=== PATIENT | female | born 1955 | race Caucasian/White ===

== ENCOUNTER → 2019-05-08 09:56 | Outpatient (CLI) | payer MEDICARE, OTHER, SELFPAY ==
[2019-05-08 11:12] LABS: Creatinine Urine Random 82.7 mg/dL
[2019-05-08 11:18] LABS: Microalbumi Creatinin Ratio Ur 7.2 ug/mg CR (<30); Microalbumin Urine Random < 0.6 mg/dL (0-1.6)
[2019-05-08 11:23] LABS: Add Manual Diff / Slide Review NO; Basophils Absolute Auto 100 /uL (0-100); Basophils Percent Auto 0.8 % (0-2); Eosinophils Absolute Auto 300 /uL (0-450); Eosinophils Percent Auto 2.8 % (2-4); Hematocrit 44.8 % (36-46); Hemoglobin 14.8 g/dL (12.0-16.0); Lymphocytes Absolute Auto 3200 /uL (1100-4500); Mean Corpuscular HGB Conc 33.1 % (30-36); Mean Corpuscular Hemoglobin 29.8 PG (26-34); Mean Corpuscular Volume 89.9 fL (80-100); Monocytes Absolute Auto 700 /uL (0-900); Neutrophils Absolute Auto 5100 /uL (1500-7000); Neutrophils Percent Auto 54.4 % (50-75); Platelet Count 355 X10^3/uL (150-400); Red Blood Cell Count 4.98 X10^6/uL (4.0-5.2); Red Cell Distribution Width 13.8 % (11.6-14.8); White Blood Cell Count 9.3 X10^3/uL (4.5-11.0)
[2019-05-08 11:28] LABS: Alanine Aminotransferase 33 IU/L (9-52); Albumin 4.6 g/dL (3.5-5.0); Albumin Globulin Ratio 1.4 (1.0-2.8); Alkaline Phosphatase 81 U/L (38-126); Aspartate Aminotransferase 38 IU/L (14-36); BUN Creatinine Ratio 31.3 (6-22); Bilirubin Total 0.7 mg/dL (0.2-1.3); Blood Urea Nitrogen 25 mg/dL (7-17); Calcium 9.6 mg/dL (8.4-10.2); Carbon Dioxide 29 mmol/L (22-32); Chloride 101 mmol/L (98-107); Cholesterol 263 mg/dL (140-199); Estimated Glomerular Filt Rate > 60.0 mL/min (>60); Globulin 3.4 g/dL (1.7-4.1); Glucose 90 mg/dL (80-110); HDL Cholesterol 48 mg/dL (40-60); HEMOLYSIS < 15 (0-50); LDL Cholesterol Calculated 173 mg/dL (<100); Potassium 4.2 mmol/L (3.4-5.1); Sodium 140 mmol/L (137-145); Triglycerides 208 mg/dL (35-150)
[2019-05-08 12:13] LABS: Free T4, Direct Thyroxine 0.96 ng/dL (0.78-2.19)
[2019-05-08 12:26] LABS: Thyroid Stimulating Hormone 4.29 uIU/mL (0.47-4.68)
== END ==
PROVIDERS: PCP Nurse Practitioner; Visit Provider Nurse Practitioner
DX: E66.9 Obesity, unspecified (principal); I10 Essential (primary) hypertension
CPT/HCPCS: 36415; 80053; 80061; 82043; 82570; 84439; 84443; 84481; 85025

== ENCOUNTER → 2019-06-08 14:28 | Outpatient (CLI) | payer MEDICARE, OTHER, SELFPAY ==
--- NOTE | 2019-06-08 14:30 | DI.MG.S_ITS ---
BILATERAL DIGITAL SCREENING MAMMOGRAM 3D/2D WITH CAD: 06/08/2019 CLINICAL: Routine screening. Comparison is made to exams dated: 03/23/2018 mammogram, 03/16/2015 mammogram, and 09/22/2013 mammogram - [facility]. The tissue of both breasts is heterogeneously dense. This may lower the sensitivity of mammography. Current study was also evaluated with a Computer Aided Detection (CAD) system. No significant masses, calcifications, or other findings are seen in either breast. There has been no significant interval change. IMPRESSION: NEGATIVE There is no mammographic evidence of malignancy. A 1 year screening mammogram is recommended. This exam was interpreted at Station ID: [id number]. NOTE: For mammograms, a report in lay terms will be sent to the patient. Approximately 15% of breast malignancies will not be visualized mammographically. In the management of a palpable breast mass, a negative mammogram must not discourage biopsy of a clinically suspicious lesion. Electronically Signed By: Pancho acuña/adelina:06/09/2019 07:21:08 letter sent: Normal Exam ACR BI-RADS Category 1: Negative 3341F
== END ==
PROVIDERS: PCP Nurse Practitioner; Visit Provider Nurse Practitioner
DX: Z12.31 Encounter for screening mammogram for malignant neoplasm of breast (principal); Z13.820 Encounter for screening for osteoporosis; Z78.0 Asymptomatic menopausal state; Z82.62 Family history of osteoporosis
CPT/HCPCS: 77063; 77067; 77080

== ENCOUNTER 2020-01-13 17:33 | Emergency (ER) | payer MEDICARE, OTHER, SELFPAY ==
[2020-01-13 18:28] VITALS: BP 169/83; PULSE 98; RESP 16; TEMP 36.9; O2SAT 96; BMI 35.5
--- NOTE | 2020-01-13 19:11 | ED.SKABFB ---
HPI - Skin/Abscess/Foreign Bdy General Chief complaint: Skin/Abscess/Foreign Body Stated complaint: bug bit right inner thigh, thinks cellulitis Time Seen by Provider: 01/13/20 17:35 Source: patient Mode of arrival: Ambulatory Limitations: no limitations History of Present Illness HPI narrative: 64F non smoker with history of HTN presents with a bug bite on her medial Right thigh. It has been gradually worsening for a few days and now is red and painful. She does not remember a bug biting her. She's had no systemic findings such as fever, chills, N/V. She denies any injury. She denies history of the same. MD complaint: insect bite/sting and abscess/boil Onset (ago): day(s) Tetanus up to date: yes Location: RLE Severity: moderate Quality: aching Pain Consistency: constant Relieving factors: none Exacerbating factors: movement Context: none Related Data Home Medications Medication Instructions Recorded Confirmed COQ10 300 mg PO BID 06/27/19 Triple Action [employer] Collagen See Rx Instructions .ROUTE .QDAY 06/27/19 calcium 1,200 mg PO .QDAY 06/27/19 fish oil 1,200 mg PO TID 06/27/19 olive leaf extract 20% oleuropein 750 mg PO .QDAY 06/27/19 red rice yeast 2,400 mg PO BID 06/27/19 vitamin D3 800 unit PO .QDAY 06/27/19 Previous Rx's Medication Instructions Recorded triamterene 75 1 tab PO QAM #90 tab 05/08/19 mg-hydrochlorothiazide 50 mg tablet omeprazole 20 mg capsule,delayed 20 mg PO DAILY #90 cap 05/22/19 release varicella-zoster [id number]-AS01B (PF) 50 0.5 ml IM ONCE #1 each 05/22/19 mcg/0.5 mL IM susp, kit gabapentin 100 mg capsule 100 mg PO BEDTIME #90 cap 06/15/19 losartan 25 mg tablet 12.5 mg PO DAILY #45 tab 01/01/20 cephalexin [Keflex] 500 mg PO QID 7 Days #28 cap 01/13/20 Allergies Allergy/AdvReac Type Severity Reaction Status Date / Time lisinopril AdvReac Intermediate Cough Verified 05/22/19 10:10 Review of Systems Constitutional Constitutional: Denies chills, Denies fatigue, Denies fever(s), Denies frequent falls, Denies lethargy and Denies weakness Eyes Eyes: Denies change in vision, Denies eye discharge, Denies irritation and Denies loss of vision ENT Ears, Nose, Mouth, and Throat: Denies change in voice, Denies dizziness, Denies neck pain, Denies sore throat and Denies throat swelling Cardiovascular Cardiovascular: Denies chest pain, Denies irregular heart rhythm, Denies lightheadedness, Denies palpitations, Denies dyspnea, Denies dyspnea on exertion and Denies orthopnea Respiratory Respiratory: Denies cough, Denies dyspnea, Denies dyspnea on exertion and Denies wheezing Gastrointestinal Gastrointestinal: Denies abdominal pain, Denies change in bowel habits, Denies diarrhea, Denies nausea and Denies vomiting Musculoskeletal Musculoskeletal: Denies neck pain and Denies numbness Integumentary/Breasts Skin/Breast: Denies pruritus, Reports erythema, Denies rash, Reports skin pain, Reports skin swelling and Denies wounds Neurologic Neurologic: Denies behavioral changes, Denies confusion, Denies dizziness, Denies frequent falls, Denies loss of vision, Denies numbness and Denies weakness Psychiatric Psychiatric: Denies anxiety, Denies behavioral changes, Denies confusion, Denies depression, Denies homicidal ideation and Denies suicidal ideation Endocrine Endocrine: Denies fatigue, Denies flushing and Denies palpitations Hematologic/Lymphatic Hematologic/Lymphatic: Denies easy bruising Allergic/Immunologic Allergic/Immunologic: Denies urticaria, Denies throat swelling and Denies wheezing Patient History Medical History Chicken pox (Resolved) Fibula fracture (Resolved) Measles (Inactive) Mumps (Resolved) Painful menstrual periods (Resolved) Surgical History Anesthesia (Resolved) History of tonsillectomy and adenoidectomy (Resolved) Status post arthroscopy of hip (Resolved ~2011) Family History Father History of heart disease Kidney failure Mother History of heart disease Kidney failure Social History Smoking Status: Never smoker Smoking Status: Never smoker alcohol intake frequency: 0-2 drinks per day Substance Use Type: does not use Exam Narrative Exam Narrative: GEN: AOx3 and in mild distress EYES: Pupils are equal, round, and reactive to light and accommodation. Extraoccular muscles are intact bilaterally. There is no subconjunctival hemorrhage or exudate. CHEST: Lungs are clear to auscultation bilaterally and free of wheezes, rales, or rhonchi. Heart rate is regular rhythm, there are no murmurs, clicks, rubs, or gallops. There is no chest wall tenderness. ABD: Abdomen is soft and nontender. There is no guarding or rebound. Bowel sounds are normal in all 4 quadrants. There is no mass or organomegaly. EXT: Full painless ROM of all extremities with no loss of sensation or strength. SKIN: 3x3cm area of tenderness, erythema, warmth on medial thigh. Very minimal induration and no fluctuance or lympangitis Initial Vital Signs Initial Vital Signs: Vital Signs Temperature 98.5 F 01/13/20 18:28 Pulse Rate 98 H 01/13/20 18:28 Respiratory Rate 16 01/13/20 18:28 Blood Pressure 169/83 H 01/13/20 18:28 Pulse Oximetry 96 01/13/20 18:28 Course Orders Ordered: Discontinued Medications Cefazolin Sodium (Keflex 250 Mg Prepack) 1 bottle [facility] ONE Stop: 01/13/20 19:18 Last Admin: 01/13/20 19:28 Dose: 1 bottle Documented by: DAVIDE Vital Signs Vital signs: Vital Signs - 8 hr 01/13/20 18:28 Temperature 98.5 F Pulse Rate 98 H Respiratory Rate 16 Blood Pressure 169/83 H Pulse Oximetry 96 MDM - Skin/Abscess/Foreign Bdy MDM Narrative Medical decision making narrative: Redness on thigh with pain and warmth and no witnessed bug bite. Most likely very early abscess with cellulitis. Not large enough to drain. Return precautions given. Questions answered to her apparent satisfaction. Discharge Plan Departure Patient Disposition: Home Clinical Impression: Cellulitis of leg, right Discharge Date/Time: 01/13/20 19:32 Instructions: DI for Cellulitis -- Adult Activity Restrictions/Additional Instructions: *You have been diagnosed with [cellulitis right thigh] *What to do: *Take medications as directed: Prescription has been sent to [facility] in [place] *Follow up with your primary care provider in 2-3 days, call for an appointment. Let them know you were seen in the Emergency Department and that we ask that you be seen in follow up *Return to ER if you should have any new, worsening or concerning symptoms Prescriptions: New cephalexin [Keflex] 500 mg capsule 500 mg PO QID 7 Days Qty: 28 RF: 0 No Action gabapentin 100 mg capsule 100 mg PO BEDTIME Qty: 90 RF: 3 COQ10 300 mg PO BID RF: 0 red rice yeast 2,400 mg PO BID RF: 0 calcium 1,200 mg PO .QDAY RF: 0 fish oil 1,200 mg PO TID RF: 0 olive leaf extract 20% oleuropein 750 mg PO .QDAY RF: 0 Triple Action [employer] Collagen See Rx Instructions .ROUTE .QDAY RF: 0 vitamin D3 800 unit PO .QDAY RF: 0 losartan 25 mg tablet 12.5 mg PO DAILY Qty: 45 RF: 3 triamterene-hydrochlorothiazid [Maxzide] 75-50 mg tablet 1 tab PO QAM Qty: 90 RF: 3 omeprazole 20 mg capsule,delayed release(DR/EC) 20 mg PO DAILY Qty: 90 RF: 3 Shingrix (PF) 50 mcg/0.5 mL suspension for reconstitution 0.5 ml IM ONCE Qty: 1 RF: 0 Referrals: Graciela Parkinson ARNP [Primary Care Provider] -
--- NOTE | 2020-01-13 19:21 | PC.NURSE ---
Pt states over past 2 days has had increasing redness/tenderness to L upper medial thigh. Pt denies hx of MRSA, states believes was from a bug bite. 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 Pt denies fever/chills. Pt in NAD.
[2020-01-13] MEDS: cephALEXin 250 MG PREPACK 1 BOTTLE MISC (19:28)
== END 2020-01-13 19:32 | disposition home or self-care (01) ==
PROVIDERS: Emergency Provider Emergency Medicine; PCP Nurse Practitioner
DX: L03.115 Cellulitis of right lower limb (principal)
CPT/HCPCS: 99281; 99283

== ENCOUNTER → 2020-08-27 09:37 | Outpatient (CLI) | payer MEDICARE, OTHER, SELFPAY ==
[2020-08-27 10:41] LABS: Alanine Aminotransferase 42 IU/L (<35); Albumin 4.3 g/dL (3.5-5.0); Albumin Globulin Ratio 1.3 (1.0-2.8); Alkaline Phosphatase 77 U/L (38-126); Aspartate Aminotransferase 41 IU/L (14-36); BUN Creatinine Ratio 23.9 (6-22); Bilirubin Total 0.5 mg/dL (0.2-1.3); Blood Urea Nitrogen 26 mg/dL (7-17); Calcium 9.7 mg/dL (8.4-10.2); Carbon Dioxide 31 mmol/L (22-32); Chloride 99 mmol/L (98-107); Cholesterol 221 mg/dL (140-199); Estimated Glomerular Filt Rate 50.1 mL/min (>60); Globulin 3.3 g/dL (1.7-4.1); Glucose 99 mg/dL (80-110); HDL Cholesterol 49 mg/dL (40-60); HEMOLYSIS < 15 (0-50); LDL Cholesterol Calculated 134 mg/dL (<100); Potassium 3.5 mmol/L (3.4-5.1); Sodium 137 mmol/L (137-145); Total Protein 7.6 g/dL (6.3-8.2); Triglycerides 189 mg/dL (35-150)
[2020-08-27 10:55] LABS: Free T3, Triiodothyronine Free 3.67 pg/mL (2.77-5.27); Free T4, Direct Thyroxine 1.15 ng/dL (0.78-2.19)
[2020-08-27 11:07] LABS: Creatinine Urine Random 112.6 mg/dL
[2020-08-27 11:09] LABS: Thyroid Stimulating Hormone 5.35 uIU/mL (0.47-4.68)
[2020-08-27 11:10] LABS: Microalbumi Creatinin Ratio Ur 7.9 ug/mg CR (<30); Microalbumin Urine Random 0.9 mg/dL (0-1.6)
== END ==
PROVIDERS: PCP Nurse Practitioner; Referring Provider Nurse Practitioner; Visit Provider Nurse Practitioner
DX: E66.9 Obesity, unspecified (principal); E78.5 Hyperlipidemia, unspecified; I10 Essential (primary) hypertension; Z79.899 Other long term (current) drug therapy
CPT/HCPCS: 36415; 80053; 80061; 82043; 82570; 84439; 84443; 84481

== ENCOUNTER → 2021-01-03 12:03 | Outpatient (CLI) | payer MEDICARE, OTHER, SELFPAY ==
[2021-01-03 14:04] LABS: Alanine Aminotransferase 20 IU/L (<35); Albumin 4.1 g/dL (3.5-5.0); Albumin Globulin Ratio 1.4 (1.0-2.8); Alkaline Phosphatase 75 U/L (38-126); Aspartate Aminotransferase 33 IU/L (14-36); BUN Creatinine Ratio 21.8 (6-22); Bilirubin Total 0.4 mg/dL (0.2-1.3); Blood Urea Nitrogen 22 mg/dL (7-17); Calcium 10.2 mg/dL (8.4-10.2); Carbon Dioxide 28 mmol/L (22-32); Chloride 98 mmol/L (98-107); Cholesterol 199 mg/dL (140-199); Estimated Glomerular Filt Rate 54.7 mL/min (>60); Glucose 87 mg/dL (80-110); HDL Cholesterol 49 mg/dL (40-60); HEMOLYSIS < 15 (0-50); LDL Cholesterol Calculated 120 mg/dL (<100); Potassium 3.9 mmol/L (3.4-5.1); Sodium 135 mmol/L (137-145); Total Protein 7.1 g/dL (6.3-8.2); Triglycerides 150 mg/dL (35-150)
[2021-01-03 14:19] LABS: Free T3, Triiodothyronine Free 3.38 pg/mL (2.77-5.27); Free T4, Direct Thyroxine 1.24 ng/dL (0.78-2.19)
[2021-01-03 14:33] LABS: Thyroid Stimulating Hormone 3.01 uIU/mL (0.47-4.68)
[2021-01-04 06:38] LABS: HBsAg Screen Negative (Negative); Hepatitis A Antibody IgM Negative (Negative); Hepatitis B Core Antibody IgM Negative (Negative); Hepatitis C Antibody <0.1 s/co ratio (0.0-0.9)
== END ==
PROVIDERS: PCP Nurse Practitioner; Referring Provider Nurse Practitioner; Visit Provider Nurse Practitioner
DX: E78.5 Hyperlipidemia, unspecified (principal); R94.4 Abnormal results of kidney function studies; I10 Essential (primary) hypertension; R79.89 Other specified abnormal findings of blood chemistry
CPT/HCPCS: 36415; 80053; 80061; 80074; 84439; 84443; 84481

== ENCOUNTER → 2021-05-23 09:11 | Outpatient (CLI) | payer MEDICARE, OTHER, SELFPAY ==
[2021-05-23 10:00] LABS: Alanine Aminotransferase 18 IU/L (<35); Albumin 3.9 g/dL (3.5-5.0); Albumin Globulin Ratio 1.3 (1.0-2.8); Alkaline Phosphatase 56 U/L (38-126); Aspartate Aminotransferase 24 IU/L (14-36); BUN Creatinine Ratio 19.8 (6-22); Bilirubin Total 0.5 mg/dL (0.2-1.3); Blood Urea Nitrogen 19 mg/dL (7-17); Calcium 9.3 mg/dL (8.4-10.2); Carbon Dioxide 30 mmol/L (22-32); Chloride 102 mmol/L (98-107); Cholesterol 176 mg/dL (140-199); Globulin 2.9 g/dL (1.7-4.1); Glucose 94 mg/dL (80-110); HDL Cholesterol 43 mg/dL (40-60); Magnesium 1.9 mg/dL (1.6-2.3); Potassium 3.8 mmol/L (3.4-5.1); Sodium 139 mmol/L (137-145); Total Protein 6.8 g/dL (6.3-8.2); Triglycerides 161 mg/dL (35-150)
[2021-05-23 10:01] LABS: HEMOLYSIS < 15 (0-50); LDL Cholesterol Calculated 101 mg/dL (<100)
[2021-05-23 12:12] LABS: Creatinine Urine Random 196.9 mg/dL
[2021-05-23 12:20] LABS: Microalbumi Creatinin Ratio Ur 17.2 ug/mg CR (<30); Microalbumin Urine Random 3.4 mg/dL (0-1.6)
== END ==
PROVIDERS: PCP Nurse Practitioner; Referring Provider Nurse Practitioner; Visit Provider Nurse Practitioner
DX: E78.2 Mixed hyperlipidemia (principal); I10 Essential (primary) hypertension; Z79.899 Other long term (current) drug therapy
CPT/HCPCS: 36415; 80053; 80061; 82043; 82570; 83735

== ENCOUNTER → 2021-06-17 16:40 | Outpatient (CLI) | payer MEDICARE, OTHER, SELFPAY ==
--- NOTE | 2021-06-17 16:44 | DI.MG.S_ITS ---
BILATERAL DIGITAL SCREENING MAMMOGRAM 3D/2D WITH CAD: 06/17/2021 CLINICAL: Routine screening. Comparison is made to exams dated: 06/08/2019 mammogram - [facility], 03/23/2018 mammogram, and 03/16/2015 mammogram - [facility]. The tissue of both breasts is heterogeneously dense. This may lower the sensitivity of mammography. Current study was also evaluated with a Computer Aided Detection (CAD) system. No significant masses, calcifications, or other findings are seen in either breast. There has been no significant interval change. IMPRESSION: NEGATIVE There is no mammographic evidence of malignancy. A 1 year screening mammogram is recommended. This exam was interpreted at Station ID: [id number]. NOTE: For mammograms, a report in lay terms will be sent to the patient. Approximately 15% of breast malignancies will not be visualized mammographically. In the management of a palpable breast mass, a negative mammogram must not discourage biopsy of a clinically suspicious lesion. Electronically Signed By: Ric Murray M.D., jr/adelina:06/18/2021 10:01:45 letter sent: Normal Exam ACR BI-RADS Category 1: Negative 3341F
== END ==
PROVIDERS: PCP Nurse Practitioner; Referring Provider Nurse Practitioner; Visit Provider Nurse Practitioner
DX: Z12.31 Encounter for screening mammogram for malignant neoplasm of breast (principal)
CPT/HCPCS: 77063; 77067

== ENCOUNTER → 2021-11-20 09:00 | Outpatient (CLI) | payer MEDICARE, OTHER, SELFPAY ==
[2021-11-20 11:11] LABS: Alanine Aminotransferase 14 IU/L (<35); Albumin 4.2 g/dL (3.5-5.0); Albumin Globulin Ratio 1.3 (1.0-2.8); Alkaline Phosphatase 72 U/L (38-126); Aspartate Aminotransferase 24 IU/L (14-36); BUN Creatinine Ratio 22.1 (6-22); Bilirubin Total 0.5 mg/dL (0.2-1.3); Blood Urea Nitrogen 21 mg/dL (7-17); Calcium 9.2 mg/dL (8.4-10.2); Carbon Dioxide 25 mmol/L (22-32); Chloride 101 mmol/L (98-107); Cholesterol 197 mg/dL (140-199); Estimated Glomerular Filt Rate > 60 mL/min (>60); Globulin 3.2 g/dL (1.7-4.1); Glucose 94 mg/dL (80-110); HDL Cholesterol 50 mg/dL (40-60); HEMOLYSIS < 15 (0-50); LDL Cholesterol Calculated 120 mg/dL (<100); Potassium 3.9 mmol/L (3.4-5.1); Sodium 139 mmol/L (137-145); Total Protein 7.4 g/dL (6.3-8.2); Triglycerides 133 mg/dL (35-150)
[2021-11-20 11:25] LABS: Free T3, Triiodothyronine Free 3.44 pg/mL (2.77-5.27); Free T4, Direct Thyroxine 1.24 ng/dL (0.78-2.19)
[2021-11-20 11:39] LABS: Thyroid Stimulating Hormone 3.08 uIU/mL (0.47-4.68)
== END ==
PROVIDERS: PCP Nurse Practitioner; Referring Provider Nurse Practitioner; Visit Provider Nurse Practitioner
DX: E78.2 Mixed hyperlipidemia (principal); I10 Essential (primary) hypertension; Z79.899 Other long term (current) drug therapy
CPT/HCPCS: 36415; 80053; 80061; 84439; 84443; 84481

== ENCOUNTER → 2022-04-10 08:55 | Outpatient (CLI) | payer MEDICARE, OTHER, SELFPAY ==
[2022-04-10 10:21] LABS: Alanine Aminotransferase 16 IU/L (<35); Albumin 4.1 g/dL (3.5-5.0); Albumin Globulin Ratio 1.2 (1.0-2.8); Alkaline Phosphatase 64 U/L (38-126); Aspartate Aminotransferase 28 IU/L (14-36); BUN Creatinine Ratio 21.3 (6-22); Bilirubin Total 0.5 mg/dL (0.2-1.3); Blood Urea Nitrogen 19 mg/dL (7-17); Calcium 8.7 mg/dL (8.4-10.2); Carbon Dioxide 27 mmol/L (22-32); Chloride 100 mmol/L (98-107); Cholesterol 167 mg/dL (140-199); Estimated Glomerular Filt Rate > 60 mL/min (>60); Globulin 3.4 g/dL (1.7-4.1); Glucose 94 mg/dL (80-110); HDL Cholesterol 44 mg/dL (40-60); HEMOLYSIS < 15 (0-50); LDL Cholesterol Calculated 105 mg/dL (<100); Potassium 3.5 mmol/L (3.4-5.1); Sodium 139 mmol/L (137-145); Total Protein 7.5 g/dL (6.3-8.2); Triglycerides 91 mg/dL (35-150)
== END ==
PROVIDERS: PCP Nurse Practitioner; Referring Provider Nurse Practitioner; Visit Provider Nurse Practitioner
DX: E78.2 Mixed hyperlipidemia (principal); Z79.899 Other long term (current) drug therapy
CPT/HCPCS: 36415; 80053; 80061

== ENCOUNTER → 2022-04-10 14:32 | Outpatient (CLI) | payer MEDICARE, OTHER, SELFPAY | PROVIDERS: PCP Nurse Practitioner; Referring Provider Nurse Practitioner; Visit Provider Nurse Practitioner | DX: N95.8 Other specified menopausal and perimenopausal disorders (principal); E78.2 Mixed hyperlipidemia; Z79.899 Other long term (current) drug therapy | CPT/HCPCS: 36415; 77080; 80053; 80061 ==

== ENCOUNTER 2022-10-30 10:17 | Emergency (ER) | payer MEDICARE, OTHER, SELFPAY ==
[2022-10-30] VITALS (33 sets, daily range): BP systolic 118–196; BP diastolic 66–95; PULSE 74–120; RESP 13–34; TEMP 36.3–37.2; O2SAT 96–99; BMI 36.6
--- NOTE | 2022-10-30 10:39 | DI.RAD.S_ITS ---
PROCEDURE: XR CHEST 1V INDICATIONS: Shortness of breath TECHNIQUE: One view of the chest was acquired. COMPARISON: None. FINDINGS: Surgical changes and devices: None. Lungs and pleura: Lungs are clear. No pleural effusions or pneumothorax. Mediastinum: Mediastinal contours appear normal. Heart size is normal. Bones and chest wall: No suspicious bony lesions. Overlying soft tissues appear unremarkable. IMPRESSION: No acute cardiopulmonary process. Dictated by: Noah Ochoa M.D. on 10/30/2022 at 11:09 Approved by: Noah Ochoa M.D. on 10/30/2022 at 11:09
[2022-10-30 10:56] LABS: Alanine Aminotransferase 20 IU/L (<35); Albumin 4.3 g/dL (3.5-5.0); Albumin Globulin Ratio 1.2 (1.0-2.8); Alkaline Phosphatase 76 U/L (38-126); Aspartate Aminotransferase 26 IU/L (14-36); BUN Creatinine Ratio 23.5 (6-22); Bilirubin Total 0.5 mg/dL (0.2-1.3); Blood Urea Nitrogen 24 mg/dL (7-17); Calcium 9.4 mg/dL (8.4-10.2); Carbon Dioxide 25 mmol/L (22-32); Chloride 97 mmol/L (98-107); Estimated Glomerular Filt Rate 60 mL/min (>60); Globulin 3.7 g/dL (1.7-4.1); Glucose 123 mg/dL (80-110); HEMOLYSIS < 15 (0-50); Lactate (Lactic Acid) 1.8 mmol/L (0.7-2.1); Potassium 3.1 mmol/L (3.4-5.1); Sodium 135 mmol/L (137-145)
[2022-10-30 10:59] LABS: Add Manual Diff / Slide Review NO; Basophils Absolute Auto 200 /uL (0-100); Eosinophils Absolute Auto 300 /uL (0-450); Eosinophils Percent Auto 1.7 % (2-4); Hematocrit 24.8 % (36-46); Hemoglobin 7.2 g/dL (12.0-16.0); Lymphocytes Absolute Auto 5000 /uL (1100-4500); Lymphocytes Percent Auto 34.3 % (25-40); Mean Corpuscular Hemoglobin 17.9 PG (26-34); Mean Corpuscular Volume 61.5 fL (80-100); Monocytes Absolute Auto 1300 /uL (0-900); Monocytes Percent Auto 8.9 % (3-14); Neutrophils Absolute Auto 7900 /uL (1500-7000); Neutrophils Percent Auto 54.1 % (50-75); Platelet Count 572 X10^3/uL (150-400); Red Blood Cell Count 4.04 X10^6/uL (4.0-5.2); Red Cell Distribution Width 19.4 % (11.6-14.8); White Blood Cell Count 14.7 X10^3/uL (4.5-11.0)
[2022-10-30 11:02] LABS: INR 1.2 (0.9-1.3); Prothrombin Time 13.3 SECONDS (10.1-12.7)
[2022-10-30 11:07] LABS: NT-proBNP (BNP-Adult 18+) 61 pg/mL (<125); Troponin I < 0.012 ng/mL (0.01-0.034)
--- NOTE | 2022-10-30 11:19 | ED_ITS ---
HPI - SOB/Dyspnea General Chief Complaint: Shortness of Breath/Dyspnea Stated Complaint: sent by [facility]/ SOB/high BP Time Seen by Provider: 10/30/22 10:46 Source: patient Mode of arrival: Family Vehicle Limitations: no limitations History of Present Illness HPI Narrative: This is a 67-year-old female with history of hypertension, dyslipidemia, GERD complaint of shortness of breath with exertion that has been going on for a couple months. Patient states when she is seated she is fine she denies any orthopnea. She states she is been less active she thought she would gained some weight in the last week she is had a little bit of cough which has been nonproductive. She denies fevers but has felt warm. No cold or congestive symptoms. Patient denies any chest pain or pressure. No lightheadedness or syncope. She states that she went shopping and felt quite fatigued yesterday. Patient has noted on her eye watch that her heart rate has been 90s and occasionally 0s fairly consistently. She denies any new swelling in her extremities. No nausea no vomiting, no black or bloody stools, no diarrhea constipation. She is scheduled for a flight to [place] tomorrow. She notes she is on Maxzide, niacin and stopped her omeprazole 2 months ago. She states she weaned herself off because she would read about some of the long-term complications. She is had remote history of hip arthroscopy and tonsillectomy. No known drug allergies. No tobacco, occasional alcohol but none for the past 1-2 months after she stopped her omeprazole. No illicit. Graciela parkinson as her primary care. Related Data Home Medications Medication Instructions Recorded Confirmed [facility] Collagen See Rx Instructions .Route .QDAY 06/27/19 11/27/21 calcium 1,200 mg PO .QDAY 06/27/19 11/27/21 vitamin D3 800 unit PO .QDAY 06/27/19 11/27/21 Previous Rx's Medication Instructions Recorded hydrocodone 5 mg-acetaminophen 325 1 tab PO BID PRN pain #10 tabs 11/27/21 mg tablet losartan 25 mg tablet See Rx Instructions .Route 11/27/21 .COMPLEX #45 tabs niacin 250 mg capsule,extended 500 mg PO BEDTIME #180 caps 11/27/21 release triamterene 75 See Rx Instructions .Route 12/12/22 mg-hydrochlorothiazide 50 mg tablet .COMPLEX #90 tabs famotidine 40 mg tablet (Pepcid) 40 mg PO BID #30 tabs 10/30/22 furosemide 40 mg tablet (Lasix) 40 mg PO DAILY #2 tabs 10/30/22 Allergies Allergy/AdvReac Type Severity Reaction Status Date / Time lisinopril AdvReac Intermediate Cough Verified 10/30/22 10:48 Review of Systems Review of Systems ROS Unobtainable: All systems reviewed & are unremarkable except as noted in HPI and below Patient History Medical History Acne Chicken pox Colon polyps Fibula fracture Frequent UTI GERD (gastroesophageal reflux disease) Hay fever Hip problem Hyperlipidemia Measles Mumps Painful menstrual periods Right hip pain Statin declined Surgical History Anesthesia History of tonsillectomy and adenoidectomy Status post arthroscopy of hip (~2011) Family History Father History of heart disease Kidney failure Mother History of heart disease Kidney failure Social History Smoking Status: Never smoker Smoking Status: Never smoker alcohol intake frequency: 0-2 drinks per day Substance Use Type: does not use Exam Narrative Exam Narrative: GENERAL: Alert and oriented x three, well-appearing female in mild distress. HEENT: Head normocephalic, atraumatic, EOMI, pupils reactive, face symmetric, moist mucous membranes NECK: Supple, full range of motion CARDIOVASCULAR: Regular rate and rhythm without murmurs, rubs or gallops. Patient heart rate is in the 90s she is been seated for about 30 minutes after arrival. RESPIRATORY: Breath sounds equal bilaterally, no wheezes rales or rhonchi. No tachypnea or accessory muscle use. Speaks in full sentences. ABDOMEN: Soft, nontender. Normoactive bowel sounds all 4 quadrants. No guarding or rebound, rigidity, no mass, rectal exam shows no mass or changes. Stool occult is negative but very small sample. : No CVA tenderness EXTREMITIES: Normal range of motion, no clubbing or edema. Neurovascularly intact NEUROLOGICAL: Cranial nerves II through XII grossly intact. Moving all extremities SKIN: Warm, dry, no petechiae, no rashes or lesions. Initial Vital Signs Initial Vital Signs: Vital Signs Temperature 98.5 F 10/30/22 10:25 Pulse Rate 120 H 10/30/22 10:25 Respiratory Rate 24 10/30/22 10:25 Blood Pressure 166/95 H 10/30/22 10:25 Pulse Oximetry 97 10/30/22 10:25 Oxygen Delivery Method Room Air 10/30/22 10:25 Course Orders Ordered: Discontinued Medications Pantoprazole Sodium (Pantoprazole 40 Mg Vial) 80 mg IV NOW ONE Stop: 10/30/22 12:41 Last Admin: 10/30/22 13:34 Dose: 80 mg Documented By: NIURKA Vital Signs Vital signs: Vital Signs - 8 hr 10/30/22 11:56 10/30/22 11:30 10/30/22 11:30 Temperature Pulse Rate 94 H Pulse Rate [Orthostatic Lying] 91 H Pulse Rate [Orthostatic Sitting] 93 H Pulse Rate [Orthostatic Standing] 97 H Respiratory Rate 23 Blood Pressure 169/82 H Blood Pressure [Orthostatic Lying] 166/79 H Blood Pressure [Orthostatic Sitting] 172/79 H Blood Pressure [Orthostatic Standing] 151/73 H Pulse Oximetry 98 Oxygen Delivery Method 10/30/22 11:48 10/30/22 11:48 10/30/22 11:50 Temperature Pulse Rate 90 95 H Pulse Rate [Orthostatic Lying] Pulse Rate [Orthostatic Sitting] Pulse Rate [Orthostatic Standing] Respiratory Rate 34 H 26 H Blood Pressure 166/79 H Blood Pressure [Orthostatic Lying] Blood Pressure [Orthostatic Sitting] Blood Pressure [Orthostatic Standing] Pulse Oximetry 96 96 Oxygen Delivery Method 10/30/22 11:50 10/30/22 11:51 10/30/22 11:51 Temperature Pulse Rate 99 H Pulse Rate [Orthostatic Lying] Pulse Rate [Orthostatic Sitting] Pulse Rate [Orthostatic Standing] Respiratory Rate 20 Blood Pressure 172/79 H 151/73 H Blood Pressure [Orthostatic Lying] Blood Pressure [Orthostatic Sitting] Blood Pressure [Orthostatic Standing] Pulse Oximetry 98 Oxygen Delivery Method 10/30/22 12:00 10/30/22 12:00 10/30/22 14:23 Temperature 98.6 F Pulse Rate 89 83 Pulse Rate [Orthostatic Lying] Pulse Rate [Orthostatic Sitting] Pulse Rate [Orthostatic Standing] Respiratory Rate 25 H 18 Blood Pressure 166/80 H 183/85 H Blood Pressure [Orthostatic Lying] Blood Pressure [Orthostatic Sitting] Blood Pressure [Orthostatic Standing] Pulse Oximetry 99 Oxygen Delivery Method Room Air 10/30/22 12:30 10/30/22 12:30 10/30/22 13:00 Temperature Pulse Rate 99 H Pulse Rate [Orthostatic Lying] Pulse Rate [Orthostatic Sitting] Pulse Rate [Orthostatic Standing] Respiratory Rate 24 Blood Pressure 172/78 H 188/80 H Blood Pressure [Orthostatic Lying] Blood Pressure [Orthostatic Sitting] Blood Pressure [Orthostatic Standing] Pulse Oximetry 99 Oxygen Delivery Method 10/30/22 13:00 10/30/22 13:30 10/30/22 13:30 Temperature Pulse Rate 89 86 Pulse Rate [Orthostatic Lying] Pulse Rate [Orthostatic Sitting] Pulse Rate [Orthostatic Standing] Respiratory Rate 20 25 H Blood Pressure 194/79 H Blood Pressure [Orthostatic Lying] Blood Pressure [Orthostatic Sitting] Blood Pressure [Orthostatic Standing] Pulse Oximetry 96 98 Oxygen Delivery Method 10/30/22 14:00 10/30/22 14:01 10/30/22 14:01 Temperature Pulse Rate 87 85 Pulse Rate [Orthostatic Lying] Pulse Rate [Orthostatic Sitting] Pulse Rate [Orthostatic Standing] Respiratory Rate 22 19 Blood Pressure 183/82 H Blood Pressure [Orthostatic Lying] Blood Pressure [Orthostatic Sitting] Blood Pressure [Orthostatic Standing] Pulse Oximetry 99 98 Oxygen Delivery Method 10/30/22 14:24 10/30/22 14:24 10/30/22 14:30 Temperature Pulse Rate 83 Pulse Rate [Orthostatic Lying] Pulse Rate [Orthostatic Sitting] Pulse Rate [Orthostatic Standing] Respiratory Rate 24 Blood Pressure 183/85 H 161/78 H Blood Pressure [Orthostatic Lying] Blood Pressure [Orthostatic Sitting] Blood Pressure [Orthostatic Standing] Pulse Oximetry Oxygen Delivery Method 10/30/22 14:30 10/30/22 14:39 10/30/22 14:44 Temperature 98.9 F Pulse Rate 81 83 83 Pulse Rate [Orthostatic Lying] Pulse Rate [Orthostatic Sitting] Pulse Rate [Orthostatic Standing] Respiratory Rate 23 20 22 Blood Pressure 176/79 H Blood Pressure [Orthostatic Lying] Blood Pressure [Orthostatic Sitting] Blood Pressure [Orthostatic Standing] Pulse Oximetry 98 Oxygen Delivery Method Room Air 10/30/22 14:44 10/30/22 15:00 10/30/22 15:00 Temperature Pulse Rate 82 Pulse Rate [Orthostatic Lying] Pulse Rate [Orthostatic Sitting] Pulse Rate [Orthostatic Standing] Respiratory Rate 21 Blood Pressure 176/79 H 160/77 H Blood Pressure [Orthostatic Lying] Blood Pressure [Orthostatic Sitting] Blood Pressure [Orthostatic Standing] Pulse Oximetry Oxygen Delivery Method 10/30/22 15:30 10/30/22 15:30 10/30/22 16:07 Temperature 98.7 F Pulse Rate 80 82 Pulse Rate [Orthostatic Lying] Pulse Rate [Orthostatic Sitting] Pulse Rate [Orthostatic Standing] Respiratory Rate 15 16 Blood Pressure 181/81 H 175/79 H Blood Pressure [Orthostatic Lying] Blood Pressure [Orthostatic Sitting] Blood Pressure [Orthostatic Standing] Pulse Oximetry 98 Oxygen Delivery Method Room Air 10/30/22 16:48 10/30/22 16:00 10/30/22 16:00 Temperature 98.4 F Pulse Rate 81 83 Pulse Rate [Orthostatic Lying] Pulse Rate [Orthostatic Sitting] Pulse Rate [Orthostatic Standing] Respiratory Rate 24 23 Blood Pressure 181/83 H 196/86 H Blood Pressure [Orthostatic Lying] Blood Pressure [Orthostatic Sitting] Blood Pressure [Orthostatic Standing] Pulse Oximetry 99 Oxygen Delivery Method 10/30/22 16:04 10/30/22 16:04 10/30/22 16:30 Temperature Pulse Rate 81 Pulse Rate [Orthostatic Lying] Pulse Rate [Orthostatic Sitting] Pulse Rate [Orthostatic Standing] Respiratory Rate 19 Blood Pressure 175/79 H 181/83 H Blood Pressure [Orthostatic Lying] Blood Pressure [Orthostatic Sitting] Blood Pressure [Orthostatic Standing] Pulse Oximetry 99 Oxygen Delivery Method 10/30/22 16:30 10/30/22 17:03 10/30/22 17:04 Temperature 98.8 F Pulse Rate 81 85 84 Pulse Rate [Orthostatic Lying] Pulse Rate [Orthostatic Sitting] Pulse Rate [Orthostatic Standing] Respiratory Rate 24 20 22 Blood Pressure 141/84 H 141/84 H Blood Pressure [Orthostatic Lying] Blood Pressure [Orthostatic Sitting] Blood Pressure [Orthostatic Standing] Pulse Oximetry 98 98 Oxygen Delivery Method Room Air 10/30/22 17:21 Temperature 98.8 F Pulse Rate 86 Pulse Rate [Orthostatic Lying] Pulse Rate [Orthostatic Sitting] Pulse Rate [Orthostatic Standing] Respiratory Rate 20 Blood Pressure 152/83 H Blood Pressure [Orthostatic Lying] Blood Pressure [Orthostatic Sitting] Blood Pressure [Orthostatic Standing] Pulse Oximetry Oxygen Delivery Method MDM - SOB/Dyspnea Lab Data 10/30/22 10:34 10/30/22 10:34 Labs: Lab Results 10/30/22 10/30/22 10/30/22 Range/Units 10:30 10:34 10:34 WBC 14.7 H (4.5-11.0) X10^3/uL RBC 4.04 (4.0-5.2) X10^6/uL Hgb 7.2 L (12.0-16.0) g/dL Hct 24.8 L (36-46) % MCV 61.5 L (80-100) fL MCH 17.9 L (26-34) PG MCHC 29.0 L (30-36) % RDW 19.4 H (11.6-14.8) % Plt Count 572 H (150-400) X10^3/uL Neut % (Auto) 54.1 (50-75) % Lymph % (Auto) 34.3 (25-40) % Dundy % (Auto) 8.9 (3-14) % Eos % (Auto) 1.7 L (2-4) % Baso % (Auto) 1.0 (0-2) % Neut # (Auto) 7900 H (3986-6218) /uL Lymph # (Auto) 5000 H (9307-1313) /uL Dundy # (Auto) 1300 H (0-900) /uL Eos # (Auto) 300 (0-450) /uL Baso # (Auto) 200 H (0-100) /uL RBC Morphology Not Reportable Hypochromasia 1+ H Microcytosis 3+ H PT 13.3 H (10.1-12.7) SECONDS INR 1.2 (0.9-1.3) Sodium (137-145) mmol/L Potassium (3.4-5.1) mmol/L Chloride (98-107) mmol/L Carbon Dioxide (22-32) mmol/L BUN (7-17) mg/dL Creatinine (0.52-1.04) mg/dL Estimated GFR (>60) mL/min BUN/Creatinine Ratio (6-22) Glucose (80-110) mg/dL Lactate (0.7-2.1) mmol/L Calcium (8.4-10.2) mg/dL Total Bilirubin (0.2-1.3) mg/dL AST (14-36) IU/L ALT (<35) IU/L Alkaline Phosphatase (38-126) U/L Troponin I (0.01-0.034) ng/mL NT-Pro-B Natriuret Pep (<125) pg/mL Total Protein (6.3-8.2) g/dL Albumin (3.5-5.0) g/dL Globulin (1.7-4.1) g/dL Albumin/Globulin Ratio (1.0-2.8) Chlamy pneumoniae PCR Not detected (Not Detect) Adenovirus (PCR) Not detected (Not Detect) B. pertussis DNA (PCR) Not detected (Not Detecte) B.parapertussis DNA PCR Not detected (Not Detecte) Coronavirus OC43 (PCR) Not detected (Not Detect) Coronavirus HKU1 (PCR) Not detected (Not Detect) Coronavirus 229E (PCR) Not detected (Not Detect) SARS-CoV-2 (PCR) Not detected (Not Detecte) Coronavirus NL63 (PCR) Not detected (Not Detect) Human Metapneumovir PCR Not detected (Not Detect) Influenza Type A (PCR) Not detected (Not Detect) Influenza Type B (PCR) Not detected (Not Detect) M. pneumoniae (PCR) Not detected (Not Detect) Parainfluenza 1 (PCR) Not detected (Not Detect) Parainfluenza 2 (PCR) Not detected (Not Detect) Parainfluenza 3 (PCR) Not detected (Not Detect) Parainfluenza 4 (PCR) Not detected (Not Detect) RSV (PCR) Not detected (Not Detect) Entero/Rhino (PCR) Not detected (Not Detect) Blood Type Antibody Screen Crossmatch 10/30/22 10/30/22 10/30/22 Range/Units 10:34 10:34 12:38 WBC (4.5-11.0) X10^3/uL RBC (4.0-5.2) X10^6/uL Hgb (12.0-16.0) g/dL Hct (36-46) % MCV (80-100) fL MCH (26-34) PG MCHC (30-36) % RDW (11.6-14.8) % Plt Count (150-400) X10^3/uL Neut % (Auto) (50-75) % Lymph % (Auto) (25-40) % Dundy % (Auto) (3-14) % Eos % (Auto) (2-4) % Baso % (Auto) (0-2) % Neut # (Auto) (4268-9194) /uL Lymph # (Auto) (3981-9971) /uL Dundy # (Auto) (0-900) /uL Eos # (Auto) (0-450) /uL Baso # (Auto) (0-100) /uL RBC Morphology Hypochromasia Microcytosis PT (10.1-12.7) SECONDS INR (0.9-1.3) Sodium 135 L (137-145) mmol/L Potassium 3.1 L (3.4-5.1) mmol/L Chloride 97 L (98-107) mmol/L Carbon Dioxide 25 (22-32) mmol/L BUN 24 H (7-17) mg/dL Creatinine 1.02 (0.52-1.04) mg/dL Estimated GFR 60 (>60) mL/min BUN/Creatinine Ratio 23.5 H (6-22) Glucose 123 H (80-110) mg/dL Lactate 1.8 (0.7-2.1) mmol/L Calcium 9.4 (8.4-10.2) mg/dL Total Bilirubin 0.5 (0.2-1.3) mg/dL AST 26 (14-36) IU/L ALT 20 (<35) IU/L Alkaline Phosphatase 76 (38-126) U/L Troponin I < 0.012 (0.01-0.034) ng/mL NT-Pro-B Natriuret Pep 61 (<125) pg/mL Total Protein 8.0 (6.3-8.2) g/dL Albumin 4.3 (3.5-5.0) g/dL Globulin 3.7 (1.7-4.1) g/dL Albumin/Globulin Ratio 1.2 (1.0-2.8) Chlamy pneumoniae PCR (Not Detect) Adenovirus (PCR) (Not Detect) B. pertussis DNA (PCR) (Not Detecte) B.parapertussis DNA PCR (Not Detecte) Coronavirus OC43 (PCR) (Not Detect) Coronavirus HKU1 (PCR) (Not Detect) Coronavirus 229E (PCR) (Not Detect) SARS-CoV-2 (PCR) (Not Detecte) Coronavirus NL63 (PCR) (Not Detect) Human Metapneumovir PCR (Not Detect) Influenza Type A (PCR) (Not Detect) Influenza Type B (PCR) (Not Detect) M. pneumoniae (PCR) (Not Detect) Parainfluenza 1 (PCR) (Not Detect) Parainfluenza 2 (PCR) (Not Detect) Parainfluenza 3 (PCR) (Not Detect) Parainfluenza 4 (PCR) (Not Detect) RSV (PCR) (Not Detect) Entero/Rhino (PCR) (Not Detect) Blood Type O Positive Antibody Screen Negative Crossmatch See Detail Point of Care Testing Stool Occult Blood Negative Imaging Data Chest x-ray: Radiologist's Impression: [place] [address] XRay Report Signed Patient: Josiane Gilmore MR#: [id number] : 1955 Acct:[id number] Age/Sex: 67 / F Date of Service: 10/30/22 Loc: Accession Number: [id number] ?? Procedure: XR chest 1V Ordering Provider: Alissa Wong D.O. PROCEDURE:? XR CHEST 1V ? INDICATIONS:? Shortness of breath ? TECHNIQUE:? One view of the chest was acquired.? ? COMPARISON:? None. ? FINDINGS:? ? Surgical changes and devices:? None.? ? Lungs and pleura:? Lungs are clear.? No pleural effusions or pneumothorax.? ? Mediastinum:? Mediastinal contours appear normal.? Heart size is normal.? ? Bones and chest wall:? No suspicious bony lesions.? Overlying soft tissues appear unremarkable.? ? IMPRESSION:? No acute cardiopulmonary process. ? ? ? Dictated by: Noah Ochoa M.D. on 10/30/2022 at 11:09 ? ? Approved by: Noah Ochoa M.D. on 10/30/2022 at 11:09?? ECG Data Attestation: I personally reviewed and interpreted this ECG as follows: Prior ECG tracings: not available for review Interpretation: Sinus tachycardia rate of 105 NV 138 QRS 82 and QTC of 454. No acute ST elevation, patient has some possible depression V2 3 for but no dynamic change. Patient does not have prior for comparison. MDM Narrative Medical decision making narrative: This is a 67-year-old female with progressive shortness of breath, patient has had some fatigue and shortness of breath with exertion. She was concerned she is developed a little bit of cough in the last week and is noted that she is flying to [place] from [facility] tomorrow. She does have a little bit of leukocytosis, patient also has elevated platelets at 572 and a hemoglobin of 7 to the only priors I have for comparison or from 2019 at that time her hemoglobin was 14 with platelets of 355 and a white count of 9.3. Patient does not have a bandemia she has elevated neutrophils, lymphocytes, monocytes and basophils. INR is negative, sodium is 135 potassium slightly low at 3 1 with a chloride 97, BUN 24 renal function is 1.02 with a glucose of 123 normal lactate, LFTs, troponin and albumin. Chest x-ray does not show acute change. EKG showed some mild sinus tachycardia, patient does not have priors for comparison. Patient was attempting to see if she had prior labs more recently but I suspect she is had a slow GI bleed in her fatigue and shortness of breath left are related to anemia. Possible GI source particularly she stopped her omeprazole the past several months but she does have some other abnormalities to her CBC. Stool occult shows is negative. Orthostatics are not positive. Spoke with Dr. Sanchez, hospitalist is to keep feverish but does feel she can be transfused, started on medication with outpatient scope if patient is comfortable with this. I did discuss with patient I would not recommend flying to [place] tomorrow, I would recommend that she stay closer here is at altitude with a low hemoglobin she could have complications or issues on a transatlantic flight. Spoke with Dr. Mcguire, she feels patient is appropriate to transfuse, restart medication such as Protonix and outpatient follow-up. Patient is agreeable with this plan. Patient not have any major changes, vitals tachycardia is resolved,. She is almost completed her 2nd unit. Discussed with patient she was given prescription for Pepcid 40 mg twice daily. She is already picked this up. Was given a script for 2 doses of Lasix to fill if she is feeling short of breath tomorrow after her transfusion, it was not given a dose here in the department as I think she can tolerate it but if needed 1 was given. Return precautions were discussed all questions answered. Discharge Plan Departure Patient Disposition: Home Clinical Impression: Anemia Instructions: Anemia Activity Restrictions/Additional Instructions: Please follow-up with General surgery to schedule upper and lower endoscopy to evaluate for possible source of anemia. I would also recommend following up with your physician for recheck of your labs including your CBC. Would take Pepcid 40mg (1 tablet) twice daily until seen by General surgery. Prescription sent to [facility] in [place]. Please return for current chest pain, shortness of breath, lightheadedness, worsening fatigue, new swelling of your extremities or other new or concerning changes. Prescriptions: New famotidine [Pepcid] 40 mg tablet 40 mg PO BID Qty: 30 0RF furosemide [Lasix] 40 mg tablet 40 mg PO DAILY Qty: 2 0RF No Action calcium 1,200 mg PO .QDAY [facility] Collagen See Rx Instructions .ROUTE .QDAY Rx Instructions: .QDAY; vitamin D3 800 unit PO .QDAY triamterene-hydrochlorothiazid 75-50 mg tablet See Rx Instructions .ROUTE .COMPLEX Qty: 90 3RF Dose Instruction: TAKE 1 TABLET EVERY MORNING FOR BLOOD PRESSURE Rx Instructions: TAKE 1 TABLET EVERY MORNING FOR BLOOD PRESSURE losartan 25 mg tablet See Rx Instructions .ROUTE .COMPLEX Qty: 45 3RF Dose Instruction: TAKE ONE-HALF (1/2) TABLET (12.5 MG) DAILY AT BEDTIME Rx Instructions: TAKE ONE-HALF (1/2) TABLET (12.5 MG) DAILY AT BEDTIME niacin 250 mg capsule, extended release 500 mg PO BEDTIME Qty: 180 3RF Rx Instructions: Take 2 capsules at bedtime daily hydrocodone-acetaminophen 5-325 mg tablet 1 tab PO BID PRN (Reason: pain) Qty: 10 0RF Referrals: Graciela Parkinson ARNP [Primary Care Provider] - Madhavi Mcguire MD [Physician] - Stand Alone Forms: Patient Portal/API, Work Release Note
[2022-10-30 11:27] LABS: Hypochromasia 1+; Microcytosis 3+
[2022-10-30 11:49] LABS: Adenovirus Not Detected (Not Detect); B. parapertussis Not Detected (Not Detecte); Bordetella pertussis Not Detected (Not Detecte); Chlamydophila pneumoniae Not Detected (Not Detect); Coronavirus 229E Not Detected (Not Detect); Coronavirus HKU1 Not Detected (Not Detect); Coronavirus NL 63 Not Detected (Not Detect); Coronavirus OC43 Not Detected (Not Detect); Human Metapneumovirus Not Detected (Not Detect); Human Rhinovirus/Enterovirus Not Detected (Not Detect); Influenza A Not Detected (Not Detect); Influenza B Not Detected (Not Detect); Mycoplasma pneumoniae Not Detected (Not Detect); Parainfluenza Virus 1 Not Detected (Not Detect); Parainfluenza Virus 2 Not Detected (Not Detect); Parainfluenza Virus 3 Not Detected (Not Detect); Parainfluenza Virus 4 Not Detected (Not Detect); Respiratory Syncytial Virus Not Detected (Not Detect); SARS- CoV-2 Not Detected (Not Detecte)
[2022-10-30] MEDS: PANTOPRAZOLE 40 MG VIAL 80 MG IV (13:34)
== END 2022-10-30 20:05 | disposition home or self-care (01) ==
PROVIDERS: Emergency Medicine; Emergency Provider Emergency Medicine; PCP Nurse Practitioner
DX: D64.9 Anemia, unspecified (principal); R79.89 Other specified abnormal findings of blood chemistry; R00.0 Tachycardia, unspecified; E87.6 Hypokalemia
CPT/HCPCS: 36415; 36430; 71045; 80053; 82272; 83605; 83880; 84484; 85025; 85610; 86850; 86900; 86901; 87633; 93005; 96374; 99285; P9040; C9113

== ENCOUNTER → 2022-11-02 12:56 | Outpatient (CLI) | payer MEDICARE, OTHER, SELFPAY ==
[2022-11-02 13:48] LABS: Add Manual Diff / Slide Review NO; Basophils Absolute Auto 100 /uL (0-100); Basophils Percent Auto 0.9 % (0-2); Eosinophils Absolute Auto 200 /uL (0-450); Eosinophils Percent Auto 1.6 % (2-4); Hematocrit 31.2 % (36-46); Hemoglobin 9.4 g/dL (12.0-16.0); Lymphocytes Absolute Auto 3000 /uL (1100-4500); Lymphocytes Percent Auto 25.3 % (25-40); Mean Corpuscular HGB Conc 30.2 % (30-36); Mean Corpuscular Volume 66.2 fL (80-100); Monocytes Absolute Auto 1200 /uL (0-900); Monocytes Percent Auto 10.4 % (3-14); Neutrophils Absolute Auto 7400 /uL (1500-7000); Neutrophils Percent Auto 61.8 % (50-75); Red Blood Cell Count 4.71 X10^6/uL (4.0-5.2); White Blood Cell Count 11.9 X10^3/uL (4.5-11.0)
[2022-11-02 14:06] LABS: Hypochromasia 2+
[2022-11-02 14:07] LABS: Alanine Aminotransferase 18 IU/L (<35); Albumin 4.1 g/dL (3.5-5.0); Albumin Globulin Ratio 1.2 (1.0-2.8); Alkaline Phosphatase 71 U/L (38-126); Anisocytosis 2+; Aspartate Aminotransferase 27 IU/L (14-36); Bilirubin Total 0.5 mg/dL (0.2-1.3); Blood Urea Nitrogen 24 mg/dL (7-17); Calcium 9.2 mg/dL (8.4-10.2); Carbon Dioxide 27 mmol/L (22-32); Chloride 99 mmol/L (98-107); Estimated Glomerular Filt Rate > 60 mL/min (>60); Globulin 3.4 g/dL (1.7-4.1); Glucose 124 mg/dL (80-110); HEMOLYSIS < 15 (0-50); Potassium 3.8 mmol/L (3.4-5.1); Sodium 138 mmol/L (137-145); Total Protein 7.5 g/dL (6.3-8.2)
[2022-11-02 14:09] LABS: Ovalocytes 1+; Poikilocytosis 2+
[2022-11-02 14:12] LABS: Microcytosis 3+
[2022-11-02 14:17] LABS: Platelet Count 526 X10^3/uL (150-400)
== END ==
PROVIDERS: PCP Nurse Practitioner; Referring Provider Nurse Practitioner; Visit Provider Nurse Practitioner
DX: D64.9 Anemia, unspecified (principal); I10 Essential (primary) hypertension
CPT/HCPCS: 36415; 80053; 83735; 85025

== ENCOUNTER → 2022-11-04 12:37 | Outpatient (CLI) | payer MEDICARE, OTHER, SELFPAY ==
[2022-11-04 13:40] LABS: Appearance Urine UA CLEAR; Bilirubin Urine UA NEGATIVE (NEGATIVE); Color Urine UA YELLOW; Glucose Urine UA NEGATIVE (Negative); Ketones Urine UA NEGATIVE (NEGATIVE); Leukocyte Esterase Urine UA TRACE (NEGATIVE); Nitrite Urine UA NEGATIVE (Negative); Occult Blood Urine UA NEGATIVE (Negative); Protein Urine UA NEGATIVE (Negative)
[2022-11-04 13:44] LABS: Bacteria Urine None Seen; Culture Indicated Urine Specimen Cultured; RBC Urine None Seen (0-5/HPF); WBC Urine None Seen (0-5/HPF)
== END ==
PROVIDERS: PCP Nurse Practitioner; Referring Provider Nurse Practitioner; Visit Provider Nurse Practitioner
DX: D72.829 Elevated white blood cell count, unspecified (principal)
CPT/HCPCS: 81001; 87086

== ENCOUNTER 2022-11-05 08:51 | Day surgery (SDC) | payer MEDICARE, OTHER, SELFPAY ==
--- NOTE | 2022-11-05 | PATH_ITS ---
[facility] Accession Number: [id number] No. of containers..03 Tissue . 01 Material submitted: . PART A: gastrointestinal site - RANDOM GASTRIC POLYPS PART B: pylorus - PYLORUS BIOPSIES PART C: esophagus, E-G Junction - GE JUNCTION BIOPSY . 01 Diagnosis: A. Random Gastric Polyps, Biopsy: Fundic gland polyps and gastric hyperplastic polyps. No Helicobacter pylori organisms identified on immunohistochemical evaluation. No intestinal metaplasia, dysplasia, or malignancy identified. . B. Pylorus, Biopsy: Pylorus type mucosa with mild chronic inflammation. No Helicobacter pylori organisms identified on immunohistochemical evaluation. No dysplasia, or malignancy identified. . C. Gastroesophageal Junction, Biopsy: Proximal gastric glandular mucosa with mild chronic inflammation. No goblet cell metaplasia or Helicobacter pylori organisms identified on H/E slide. No dysplasia or malignancy. [facility] 11/11/2022 1504 Local . 01 Comment: . . 01 Electronically signed: . Sandra Campa MD, Pathologist NPI- [id number] . 01 Gross description: . Part A: RANDOM GASTRIC POLYPS: Received in formalin are 3 fragment(s) of win, soft tissue measuring 0.3 x 0.2 x 0.1 cm to 0.2 x 0.1 x 0.1 cm submitted entirely in 1 cassette(s) Part B: PYLORUS BIOPSIES: Received in formalin are 2 fragment(s) of win, soft tissue measuring 0.3 x 0.2 x 0.1 cm to 0.2 x 0.1 x 0.1 cm submitted entirely in 1 cassette(s) Part C: GE JUNCTION BIOPSY: Received in formalin is 1 fragment(s) of win, soft tissue measuring 0.1 x 0.1 x 0.1 cm submitted entirely in 1 cassette(s) /CPE 11/06/2022 0653 Local . 01 Microscopic: . A. An immunohistochemical stain was performed to evaluate for Helicobacter organisms and is negative. The control stain showed appropriate reactivity. . B. An immunohistochemical stain was performed to evaluate for Helicobacter organisms and is negative. The control stain showed appropriate reactivity. . * This test was developed and its performance characteristics determined by [facility]. It has not been cleared or approved by the U.S. Food and Drug Administration. The FDA has determined that such clearance or approval is not necessary. This test is used for clinical purposes. It should not be regarded as investigational or for research. . 01 Pathologist provided ICD-10: K29.70, D13.1, K21.9 . 01 CPT . 033303, 453842, 659653, C68621 Specimen Comment: A courtesy copy of this report has been sent to [facility] Pathology Performed at: 01 [facility] [address] [place] [address], [place], [place] [id number] MD Pancho Stewart MD Phone: [phone]
[2022-11-05] MEDS: LACTATED RINGERS 1,000 ML 42 ML IV (09:26)
[2022-11-05 09:27] VITALS: BP 160/96; PULSE 97; RESP 22; TEMP 36.2; O2SAT 97; BMI 37.1
--- NOTE | 2022-11-05 09:45 | PM.HP.1 ---
History of Present Illness History of Present Illness Date Patient Seen: 11/05/22 Time Patient Seen: 09:45 Chief complaint: SDC, anemia Narrative: Ms. Gilmore presents today for an EGD and colonoscopy. She relates that she had a screening colonoscopy 10 years ago. I have reviewed the report from the colonoscopy dated 06/15/2014. There were a few polyps but they were hyperplastic. Otherwise there was some congestion in the rectum that was thought to be consistent with possible prolapse. And prep was good and otherwise the exam was unremarkable she was given a 10 year follow-up. Has no family history of colon cancer her father had non-Hodgkin's lymphoma but no other types of cancer in her family. She does not have any concerning colon symptoms denies bleeding from below or dark bowel movements, no changes in her bowel habits. She also has no upper GI symptoms no difficulty swallowing epigastric pain or feeling of sticking in her throat. She does have a history of GERD and has been on omeprazole for at least 10 years of her life but has in the last few years has weaned herself off of this and really has not experienced any symptoms that are concerning. She on occasion does have heartburn but the occasional Tums seems to relieve the symptoms. She discontinued omeprazole under the advisement of her primary care. The 1 symptom that she does relate is that she has been feeling tired for at least the last few months. One week ago she presented to the emergency department with shortness of breath and she was found to have a hemoglobin of 7 and received a transfusion. She felt much better afterwards and was discharged home with the follow-up for workup today. [facility] Medical History Acne Chicken pox Colon polyps Fibula fracture Frequent UTI GERD (gastroesophageal reflux disease) Hay fever Hip problem Hyperlipidemia Measles Mumps Painful menstrual periods Right hip pain Statin declined Surgical History Anesthesia History of tonsillectomy and adenoidectomy Status post arthroscopy of hip (~2011) Family History Father History of heart disease Kidney failure Mother History of heart disease Kidney failure Social History Smoking Status: Never smoker Meds Home Medications and Allergies Home Medications Medication Instructions Recorded Confirmed Type calcium 1,200 mg PO .QDAY 06/27/19 11/04/22 History vitamin D3 800 unit PO .QDAY 06/27/19 11/05/22 History losartan 25 mg tablet See Rx Instructions .Route 11/27/21 11/05/22 Rx .COMPLEX #45 tabs niacin 250 mg capsule,extended 500 mg PO BEDTIME #180 caps 11/27/21 11/05/22 Rx release triamterene 75 See Rx Instructions .Route 07/06/22 11/05/22 Rx mg-hydrochlorothiazide 50 mg tablet .COMPLEX #90 tabs famotidine 40 mg tablet (Pepcid) 40 mg PO BID #180 tabs 11/04/22 11/05/22 Rx ferrous sulfate 142 mg (45 mg 142 mg PO BID #180 tabs 11/04/22 11/05/22 Rx iron) tablet,extended release (Slow Fe) nitrofurantoin 100 mg PO Q12H 7 days #14 caps 11/04/22 11/05/22 Rx monohydrate/macrocrystals 100 mg capsule (Macrobid) Allergies Allergy/AdvReac Type Severity Reaction Status Date / Time lisinopril AdvReac Intermediate Cough Verified 11/05/22 09:21 Exam Const General: cooperative, healthy appearing and comfortable Orientation: alert, awake and oriented x3 HENMT Head: normal to inspection Eyes General: appearance normal, both eyes and all related structures Resp Effort & Inspection: normal respiratory effort and able to speak in complete sentences GI Palpation: soft and No tender Assessment & Plan Assessment and plan (1) Anemia: Status: Acute Assessment & Plan narrative: Presents today for colonoscopy and possible biopsy I discussed the risks benefits and alternatives including but not limited to perforation of the colon and an incomplete exam she fully understands these risks and would like to proceed. I also discussed the risks of EGD including but not limited to damage to the esophagus or stomach or the possibility of the lack of diagnosis in general. 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
[2022-11-05 11:41] VITALS: BP 116/83; PULSE 86; RESP 16; TEMP 37.2; O2SAT 99
--- NOTE | 2022-11-05 11:41 | P.OP.EGD&C_ITS ---
Operative Date/Time/Diagnoses Date of procedure: 11/05/22 Time of procedure: 11:42 Pre-op diagnosis: Anemia Post-op diagnosis: same Procedure & Clinicians Study performed: EGD and biopsies, colonoscopy Same procedure as scheduled: Yes Indications: Anemia Surgeon: Terra Schuster Procedure Notes Procedure in detail: Patient was taken to the endoscopy suite and placed in a left lateral decubitus position. Time-out was performed. Conscious sedation induced with the assistance of Anesthesiology provider. A bite block was placed. And the esophageal scope was introduced into the mouth advanced into the esophagus without difficulty and into the stomach. A hiatal hernia was seen and photographed on the way in and there was a little bit of slight redness around the pylorus. There were several gastric polyps as well. Photographs were o btained of the polyps and several biopsies were taken of these as well. The pylorus was entered and the duodenum was examined it appeared normal. Upon withdrawal the pylorus was biopsied. Additionally the GE junction was biopsied after entering the hiatal hernia. The patient did have some coughing during the exam but otherwise tolerated it well. Next the table was turned and a digital rectal exam was performed. There were no masses or strictures. The colonoscope was introduced into the anal canal and advanced through to the cecum. A photograph of the cecum was obtained. Then the scope was slowly withdrawn examining the colonic mucosa. The prep was good [place] bowel prep score of 2. No polyps were seen in the cecum ascending or transverse colon. When we were at about 50 cm in the descending colon the camera experienced a technical issue and we lost the picture for some time. We were able to regain it and I had not moved the scope at all during the time, additionally I returned to the splenic flexure to reexamine the colon that had previously been examined and I continued to withdrawal through the descending colon sigmoid and rectum. No further polyps were identified and the patient tolerated the procedure well and went in good condition to the postoperative care unit. Specimen(s): other (1. Gastric polyps 2. Pyloric biopsy 3. GE junction biopsy ) Complications: none Post-procedure Recommendations: Colonscopy in 10 years Plan for aftercare: Without any family history of colon cancer and no changes in your symptoms you may follow-up for a screening colonoscopy in 10 years.
[2022-11-05 11:46] VITALS: BP 131/92; PULSE 76; RESP 17; TEMP 37.2; O2SAT 99
[2022-11-05 11:54] VITALS: BP 160/90; PULSE 71; RESP 16; TEMP 37.2; O2SAT 99
[2022-11-05 11:59] VITALS: BP 135/90; PULSE 70; RESP 16; TEMP 37; O2SAT 98
== END 2022-11-05 12:12 | disposition home or self-care (01) ==
PROVIDERS: PCP Nurse Practitioner; Referring Provider Surgery; Visit Provider Surgery
PROC: 0DJ08ZZ Inspection of Upper Intestinal Tract, Via Natural or Artificial Opening Endoscopic (ICD-10-PCS; CPT 43235; principal; 2022-11-05 10:00)
PROC: 0DJD8ZZ Inspection of Lower Intestinal Tract, Via Natural or Artificial Opening Endoscopic (ICD-10-PCS; CPT 45378; 2022-11-05 10:00)
DX: Z12.11 Encounter for screening for malignant neoplasm of colon (principal); Z86.010 Personal history of colon polyps; D64.9 Anemia, unspecified; K44.9 Diaphragmatic hernia without obstruction or gangrene; K31.7 Polyp of stomach and duodenum; K29.50 Unspecified chronic gastritis without bleeding
CPT/HCPCS: 45378; 43239; J2704

== ENCOUNTER → 2022-12-02 10:02 | Outpatient (CLI) | payer MEDICARE, OTHER, SELFPAY ==
[2022-12-02 11:52] LABS: Alanine Aminotransferase 21 IU/L (<35); Albumin 3.9 g/dL (3.5-5.0); Albumin Globulin Ratio 1.1 (1.0-2.8); Alkaline Phosphatase 56 U/L (38-126); Aspartate Aminotransferase 30 IU/L (14-36); Bilirubin Total 0.2 mg/dL (0.2-1.3); Blood Urea Nitrogen 22 mg/dL (7-17); Calcium 8.9 mg/dL (8.4-10.2); Carbon Dioxide 31 mmol/L (22-32); Chloride 102 mmol/L (98-107); Estimated Glomerular Filt Rate 51 mL/min (>60); Globulin 3.4 g/dL (1.7-4.1); Glucose 84 mg/dL (80-110); HEMOLYSIS < 15 (0-50); Potassium 3.4 mmol/L (3.4-5.1); Sodium 141 mmol/L (137-145); Total Protein 7.3 g/dL (6.3-8.2)
[2022-12-02 12:00] LABS: HEMOLYSIS < 15 (0-50); Iron 166 ug/dL (37-170)
[2022-12-02 12:11] LABS: Percent Iron Saturation 41 % (15-50); Total Iron Binding Capacity 407 ug/dL (265-497); Transferrin 308 mg/dL (206-381)
[2022-12-02 14:07] LABS: Basophils Absolute Auto 100 /uL (0-100); Eosinophils Absolute Auto 300 /uL (0-450); Eosinophils Percent Auto 3.1 % (2-4); Hematocrit 37.5 % (36-46); Lymphocytes Absolute Auto 2900 /uL (1100-4500); Mean Corpuscular HGB Conc 31.9 % (30-36); Mean Corpuscular Hemoglobin 24.3 PG (26-34); Mean Corpuscular Volume 76.2 fL (80-100); Monocytes Absolute Auto 700 /uL (0-900); Monocytes Percent Auto 8.7 % (3-14); Neutrophils Absolute Auto 4300 /uL (1500-7000); Neutrophils Percent Auto 52.2 % (50-75); Platelet Count 359 X10^3/uL (150-400); Red Blood Cell Count 4.92 X10^6/uL (4.0-5.2); Red Cell Distribution Width 32.7 % (11.6-14.8); White Blood Cell Count 8.3 X10^3/uL (4.5-11.0)
[2022-12-02 14:09] LABS: Add Manual Diff / Slide Review SLIDE REVIEW
[2022-12-02 14:31] LABS: Anisocytosis 3+; Hypochromasia 2+; Microcytosis 1+; Ovalocytes 1+; RBC Morphology See
== END ==
PROVIDERS: PCP Nurse Practitioner; Referring Provider Nurse Practitioner; Visit Provider Nurse Practitioner
DX: D50.9 Iron deficiency anemia, unspecified (principal)
CPT/HCPCS: 36415; 80053; 83540; 83550; 85025

== ENCOUNTER → 2023-01-18 08:17 | Outpatient (CLI) | payer MEDICARE, OTHER, SELFPAY ==
[2023-01-18 09:07] LABS: Add Manual Diff / Slide Review SLIDE REVIEW; Basophils Absolute Auto 100 /uL (0-100); Basophils Percent Auto 0.8 % (0-2); Eosinophils Absolute Auto 200 /uL (0-450); Eosinophils Percent Auto 2.8 % (2-4); Hematocrit 40.6 % (36-46); Hemoglobin 13.4 g/dL (12.0-16.0); Lymphocytes Absolute Auto 2900 /uL (1100-4500); Lymphocytes Percent Auto 39.3 % (25-40); Mean Corpuscular HGB Conc 32.9 % (30-36); Mean Corpuscular Hemoglobin 27.7 PG (26-34); Mean Corpuscular Volume 84.2 fL (80-100); Monocytes Absolute Auto 800 /uL (0-900); Monocytes Percent Auto 10.9 % (3-14); Neutrophils Absolute Auto 3400 /uL (1500-7000); Neutrophils Percent Auto 46.2 % (50-75); Platelet Count 321 X10^3/uL (150-400); Red Blood Cell Count 4.83 X10^6/uL (4.0-5.2); Red Cell Distribution Width 23.5 % (11.6-14.8); White Blood Cell Count 7.3 X10^3/uL (4.5-11.0)
[2023-01-18 09:40] LABS: HEMOLYSIS < 15 (0-50); Iron 93 ug/dL (37-170)
[2023-01-18 09:45] LABS: Alanine Aminotransferase 23 IU/L (<35); Albumin 3.8 g/dL (3.5-5.0); Albumin Globulin Ratio 1.3 (1.0-2.8); Alkaline Phosphatase 64 U/L (38-126); Aspartate Aminotransferase 31 IU/L (14-36); BUN Creatinine Ratio 23.3 (6-22); Bilirubin Total 0.6 mg/dL (0.2-1.3); Blood Urea Nitrogen 21 mg/dL (7-17); Calcium 9.5 mg/dL (8.4-10.2); Carbon Dioxide 32 mmol/L (22-32); Chloride 99 mmol/L (98-107); Estimated Glomerular Filt Rate > 60 mL/min (>60); Globulin 2.9 g/dL (1.7-4.1); Glucose 96 mg/dL (80-110); HEMOLYSIS < 15 (0-50); Potassium 3.8 mmol/L (3.4-5.1); Sodium 136 mmol/L (137-145); Total Protein 6.7 g/dL (6.3-8.2)
[2023-01-18 09:51] LABS: Percent Iron Saturation 23 % (15-50); Total Iron Binding Capacity 413 ug/dL (265-497); Transferrin 298 mg/dL (206-381)
[2023-01-18 09:59] LABS: Anisocytosis 1+; Poikilocytosis 1+
== END ==
PROVIDERS: PCP Nurse Practitioner; Referring Provider Nurse Practitioner; Visit Provider Nurse Practitioner
DX: D64.9 Anemia, unspecified (principal); I10 Essential (primary) hypertension
CPT/HCPCS: 36415; 80053; 83540; 83550; 85025

== ENCOUNTER → 2023-03-02 13:05 | Outpatient (ROUT) | payer MEDICARE, OTHER, SELFPAY | PROVIDERS: PCP Nurse Practitioner; Visit Provider Dermatology | DX: L02.211 Cutaneous abscess of abdominal wall (principal) | CPT/HCPCS: 87070; 87075; 87147; 87186; 87205 ==

== ENCOUNTER → 2023-05-29 10:33 | Outpatient (CLI) | payer MEDICARE, OTHER, SELFPAY ==
--- NOTE | 2023-05-29 | DI.MRI.S_ITS ---
PROCEDURE: MR SHOULDER LT WO CON INDICATIONS: Impingement syndrome of left shoulder TECHNIQUE: Noncontrast oblique coronal T2 fast spin echo with fat saturation, oblique sagittal T1 spin echo and T2 fast spin echo with fat saturation, axial T1 spin echo and T2 fast spin echo with fat saturation through the shoulder. COMPARISON: [facility], CR, XR SHOULDER 2+ VIEWS LEFT, 08/17/2022, 8:37. FINDINGS: Image quality: Excellent. Rotator cuff: There is a grade partial intrasubstance and bursal sided tearing of the supraspinatus and infraspinatus tendons at their distal insertions superimposed on [id number]-ck-shdidsoe chronic tendinosis. The teres minor tendon is intact. The subscapularis tendon is also intact. There is no significant rotator cuff muscle atrophy. Bones and bursae: No acute trabecular bone injury or fracture. Mild chronic traction cystic changes and trace edema are seen at the greater tuberosity. Small chronic traction cystic changes also noted at the posterior humeral head. There is partial-thickness cartilage irregularity in the glenohumeral joint with formation of small marginal osteophytes. Moderate degenerative changes are seen at the acromioclavicular joint. There is trace fluid in the subacromial/subdeltoid bursa. No significant glenohumeral effusion is seen. Capsule and soft tissues: Mild diffuse labral degeneration is seen without a displaced tear. The proximal biceps long head tendon is intact. There is normal fatty signal in the rotator interval. The glenohumeral ligaments appear to be intact. A benign intramuscular lipoma is partially imaged at the distal portion of the lateral belly of the deltoid muscle. The imaged portion measures up to 4 cm in length. IMPRESSION: 1. Low-grade partial intrasubstance and bursal sided tearing of the supraspinatus and infraspinatus tendons at the distal insertion superimposed on zmei-oc-tarchdfo tendinosis. 2. Mild diffuse labral degeneration. Grade 2 chondromalacia in the glenohumeral joint. 3. Moderate acromioclavicular joint osteoarthrosis. 4. Trace subacromial/subdeltoid bursal effusion or mild bursitis. 5. Benign intramuscular lipoma is incidentally noted in the included portion of the distal deltoid muscle. Approved by: Hans Sears M.D. on 05/31/2023 at 10:27
== END ==
PROVIDERS: PCP Nurse Practitioner; Referring Provider Orthopaedic Surgery; Visit Provider Orthopaedic Surgery
DX: M75.42 Impingement syndrome of left shoulder (principal); M75.112 Incomplete rotator cuff tear or rupture of left shoulder, not specified as traumatic; M19.012 Primary osteoarthritis, left shoulder; M94.212 Chondromalacia, left shoulder; D17.9 Benign lipomatous neoplasm, unspecified
CPT/HCPCS: 73221

== ENCOUNTER → 2023-06-01 09:52 | Outpatient (CLI) | payer MEDICARE, OTHER, SELFPAY ==
--- NOTE | 2023-06-01 09:54 | DI.RAD.S_ITS ---
PROCEDURE: XR HAND LT MIN 3V INDICATIONS: Left anterior hand pain to base of left thumb TECHNIQUE: 3 views of the hand(s) acquired. COMPARISON: None. FINDINGS: Bones: No fractures or dislocations. No suspicious bony lesions. There is moderate to severe osteoarthritic degenerative change involving the left 1st carpometacarpal joint. Soft tissues: No suspicious soft tissue calcifications. IMPRESSION: 1. No evidence for acute osseous abnormality involving the left hand. 2. Moderate to severe osteoarthritic degenerative change left 1st carpometacarpal joint. Dictated by: Jordon Ding M.D. on 06/01/2023 at 14:38 Approved by: Jordon Ding M.D. on 06/01/2023 at 14:45
== END ==
PROVIDERS: PCP Nurse Practitioner; Referring Provider Physician Assistant; Visit Provider Physician Assistant
DX: S60.222A Contusion of left hand, initial encounter (principal); X58.XXXA Exposure to other specified factors, initial encounter
CPT/HCPCS: 73130

== ENCOUNTER → 2023-07-21 08:06 | Outpatient (CLI) | payer MEDICARE, OTHER, SELFPAY ==
[2023-07-21 08:47] LABS: Add Manual Diff / Slide Review NO; Basophils Absolute Auto 100 /uL (0-100); Basophils Percent Auto 0.7 % (0-2); Eosinophils Absolute Auto 300 /uL (0-450); Eosinophils Percent Auto 3.1 % (2-4); Hematocrit 42.3 % (36-46); Hemoglobin 13.8 g/dL (12.0-16.0); Lymphocytes Absolute Auto 3800 /uL (1100-4500); Lymphocytes Percent Auto 43.3 % (25-40); Mean Corpuscular HGB Conc 32.6 % (30-36); Mean Corpuscular Hemoglobin 29.1 PG (26-34); Mean Corpuscular Volume 89.4 fL (80-100); Monocytes Absolute Auto 900 /uL (0-900); Monocytes Percent Auto 10.3 % (3-14); Neutrophils Absolute Auto 3700 /uL (1500-7000); Neutrophils Percent Auto 42.6 % (50-75); Platelet Count 333 X10^3/uL (150-400); Red Blood Cell Count 4.73 X10^6/uL (4.0-5.2); Red Cell Distribution Width 14.7 % (11.6-14.8); White Blood Cell Count 8.7 X10^3/uL (4.5-11.0)
[2023-07-21 09:02] LABS: HEMOLYSIS < 15 (0-50); Iron 84 ug/dL (37-170)
[2023-07-21 09:07] LABS: Alanine Aminotransferase 25 IU/L (<35); Albumin 3.9 g/dL (3.5-5.0); Albumin Globulin Ratio 1.3 (1.0-2.8); Alkaline Phosphatase 53 U/L (38-126); Aspartate Aminotransferase 36 IU/L (14-36); Bilirubin Total 0.7 mg/dL (0.2-1.3); Blood Urea Nitrogen 21 mg/dL (7-17); Carbon Dioxide 27 mmol/L (22-32); Chloride 102 mmol/L (98-107); Cholesterol 224 mg/dL (140-199); Estimated Glomerular Filt Rate > 60 mL/min (>60); Globulin 2.9 g/dL (1.7-4.1); Glucose 83 mg/dL (80-110); HDL Cholesterol 50 mg/dL (40-60); HEMOLYSIS < 15 (0-50); LDL Cholesterol Calculated 137 mg/dL (<100); Potassium 3.6 mmol/L (3.4-5.1); Sodium 136 mmol/L (137-145); Total Protein 6.8 g/dL (6.3-8.2); Triglycerides 184 mg/dL (35-150)
[2023-07-21 09:14] LABS: Percent Iron Saturation 20 % (15-50); Total Iron Binding Capacity 415 ug/dL (265-497); Transferrin 361 mg/dL (206-381)
== END ==
PROVIDERS: PCP Nurse Practitioner; Referring Provider Nurse Practitioner; Visit Provider Nurse Practitioner
DX: D50.9 Iron deficiency anemia, unspecified (principal); E78.5 Hyperlipidemia, unspecified; K92.2 Gastrointestinal hemorrhage, unspecified; I10 Essential (primary) hypertension; N18.30 Chronic kidney disease, stage 3 unspecified
CPT/HCPCS: 36415; 80053; 80061; 83540; 83550; 85025

== ENCOUNTER → 2023-09-07 15:33 | Outpatient (CLI) | payer MEDICARE, OTHER, SELFPAY ==
--- NOTE | 2023-09-07 | DI.MG.S_ITS ---
BILATERAL DIGITAL SCREENING MAMMOGRAM 3D/2D WITH CAD: 09/07/2023 CLINICAL: Routine screening. Comparison is made to exams dated: 06/17/2021 mammogram, 06/08/2019 mammogram - [facility], 03/23/2018 mammogram, 03/16/2015 mammogram, and 09/22/2013 mammogram - [facility]. There are scattered areas of fibroglandular density in both breasts (category b / 25%-50% glandular tissue). Current study was also evaluated with a Computer Aided Detection (CAD) system. No significant masses, calcifications, or other findings are seen in either breast. There has been no significant interval change. IMPRESSION: NEGATIVE There is no mammographic evidence of malignancy. A 1 year screening mammogram is recommended. Based on the Tyrer Cuzick model (a risk assessment model) the patient's lifetime risk is 6.4% and her 10 year risk is 4.4%. According to the ACR, ACS, and NCCN guidelines, an annual breast MRI exam along with mammogram is recommended if the patient's lifetime risk is 20% or greater. This exam was interpreted at Station ID: [id number]. NOTE: For mammograms, a report in lay terms will be sent to the patient. Approximately 15% of breast malignancies will not be visualized mammographically. In the management of a palpable breast mass, a negative mammogram must not discourage biopsy of a clinically suspicious lesion. Electronically Signed By: Kong quiles/adelina:09/08/2023 13:38:11 letter sent: Normal Exam ACR BI-RADS Category 1: Negative [id number]
== END ==
LOC: MAMMO 15:34
PROVIDERS: PCP Nurse Practitioner; Referring Provider Nurse Practitioner; Visit Provider Nurse Practitioner
DX: Z12.31 Encounter for screening mammogram for malignant neoplasm of breast (principal); R92.323 Mammographic fibroglandular density, bilateral breasts
CPT/HCPCS: 77063; 77067

== ENCOUNTER → 2023-09-14 08:02 | Outpatient (CLI) | payer MEDICARE, OTHER, SELFPAY ==
[2023-09-14 08:40] LABS: Add Manual Diff / Slide Review NO; Basophils Absolute Auto 100 /uL (0-100); Basophils Percent Auto 0.7 % (0-2); Eosinophils Absolute Auto 200 /uL (0-450); Eosinophils Percent Auto 3.4 % (2-4); Hematocrit 45.5 % (36-46); Hemoglobin 14.9 g/dL (12.0-16.0); Lymphocytes Absolute Auto 2900 /uL (1100-4500); Lymphocytes Percent Auto 39.4 % (25-40); Mean Corpuscular HGB Conc 32.8 % (30-36); Mean Corpuscular Hemoglobin 29.2 PG (26-34); Mean Corpuscular Volume 89.1 fL (80-100); Monocytes Absolute Auto 800 /uL (0-900); Monocytes Percent Auto 10.6 % (3-14); Neutrophils Absolute Auto 3300 /uL (1500-7000); Neutrophils Percent Auto 45.9 % (50-75); Platelet Count 330 X10^3/uL (150-400); Red Blood Cell Count 5.11 X10^6/uL (4.0-5.2); Red Cell Distribution Width 14.8 % (11.6-14.8); White Blood Cell Count 7.3 X10^3/uL (4.5-11.0)
[2023-09-14 08:49] LABS: HEMOLYSIS < 15 (0-50); Iron 74 ug/dL (37-170)
[2023-09-14 08:52] LABS: Cholesterol 186 mg/dL (140-199); HDL Cholesterol 45 mg/dL (40-60); LDL Cholesterol Calculated 117 mg/dL (<100); Triglycerides 119 mg/dL (35-150)
[2023-09-14 09:05] LABS: Percent Iron Saturation 18 % (15-50); Total Iron Binding Capacity 404 ug/dL (265-497); Transferrin 328 mg/dL (206-381)
[2023-09-14 09:10] LABS: Free T3, Triiodothyronine Free 3.79 pg/mL (2.77-5.27); Free T4, Direct Thyroxine 1.15 ng/dL (0.78-2.19)
[2023-09-14 09:24] LABS: Thyroid Stimulating Hormone 3.23 uIU/mL (0.47-4.68)
[2023-09-14 09:26] LABS: Ferritin 12 ng/mL (11-264)
[2023-09-14 10:28] LABS: Creatinine Urine Random 183.9 mg/dL
[2023-09-14 10:38] LABS: Microalbumin Urine Random 3.5 mg/dL (0-1.6)
== END ==
PROVIDERS: PCP Nurse Practitioner; Referring Provider Nurse Practitioner; Visit Provider Nurse Practitioner
DX: E78.5 Hyperlipidemia, unspecified (principal); N18.30 Chronic kidney disease, stage 3 unspecified; I10 Essential (primary) hypertension; D64.9 Anemia, unspecified; D50.9 Iron deficiency anemia, unspecified
CPT/HCPCS: 36415; 80061; 82043; 82570; 82728; 83540; 83550; 84439; 84443; 84481; 85025

== ENCOUNTER → 2023-12-06 09:35 | Outpatient (CLI) | payer MEDICARE, OTHER, SELFPAY ==
[2023-12-06 10:41] LABS: Alanine Aminotransferase 38 IU/L (<35); Albumin 4.5 g/dL (3.5-5.0); Albumin Globulin Ratio 1.4 (1.0-2.8); Alkaline Phosphatase 52 U/L (38-126); Aspartate Aminotransferase 37 IU/L (14-36); BUN Creatinine Ratio 23.5 (6-22); Bilirubin Total 0.8 mg/dL (0.2-1.3); Blood Urea Nitrogen 28 mg/dL (7-17); Calcium 9.7 mg/dL (8.4-10.2); Carbon Dioxide 31 mmol/L (22-32); Chloride 102 mmol/L (98-107); Cholesterol 182 mg/dL (140-199); Estimated Glomerular Filt Rate 49 mL/min (>60); Globulin 3.3 g/dL (1.7-4.1); Glucose 89 mg/dL (80-110); HDL Cholesterol 49 mg/dL (40-60); HEMOLYSIS < 15 (0-50); LDL Cholesterol Calculated 112 mg/dL (<100); Potassium 3.5 mmol/L (3.4-5.1); Sodium 138 mmol/L (137-145); Total Protein 7.8 g/dL (6.3-8.2); Triglycerides 106 mg/dL (35-150)
== END ==
PROVIDERS: PCP Nurse Practitioner; Referring Provider Nurse Practitioner; Visit Provider Nurse Practitioner
DX: I12.9 Hypertensive chronic kidney disease with stage 1 through stage 4 chronic kidney disease, or unspecified chronic kidney disease (principal); E78.2 Mixed hyperlipidemia; N18.31 Chronic kidney disease, stage 3a; Z79.899 Other long term (current) drug therapy
CPT/HCPCS: 36415; 80053; 80061

== ENCOUNTER → 2024-05-22 09:23 | Outpatient (CLI) | payer MEDICARE, OTHER, SELFPAY ==
[2024-05-22 12:22] LABS: Alanine Aminotransferase 16 IU/L (<35); Albumin Globulin Ratio 1.6 (1.0-2.8); Alkaline Phosphatase 49 U/L (38-126); Aspartate Aminotransferase 35 IU/L (14-36); BUN Creatinine Ratio 22.8 (6-22); Bilirubin Total 0.9 mg/dL (0.2-1.3); Blood Urea Nitrogen 23 mg/dL (7-17); Carbon Dioxide 30 mmol/L (22-32); Chloride 101 mmol/L (98-107); Estimated Glomerular Filt Rate 60 mL/min (>60); Globulin 2.5 g/dL (1.7-4.1); Glucose 75 mg/dL (80-110); HEMOLYSIS < 15 (0-50); Potassium 3.8 mmol/L (3.4-5.1); Sodium 136 mmol/L (137-145); Total Protein 6.5 g/dL (6.3-8.2)
== END ==
LOC: LAB 09:25
PROVIDERS: Nurse Practitioner; PCP Family Medicine; Referring Provider Family Medicine; Visit Provider Family Medicine
DX: N18.30 Chronic kidney disease, stage 3 unspecified (principal); R79.89 Other specified abnormal findings of blood chemistry
CPT/HCPCS: 36415; 80053

== ENCOUNTER 2024-08-26 19:43 | Emergency (ER) | payer MEDICARE, OTHER, SELFPAY ==
[2024-08-26] VITALS (11 sets, daily range): BP systolic 158–182; BP diastolic 72–92; PULSE 86–123; RESP 12–22; TEMP 36.9; O2SAT 94–98; BMI 28.7
--- NOTE | 2024-08-26 20:45 | EKG_ITS ---
[place] [id number] [place] [id number] Test Date: 2024-08-26 Pat Name: Josiane Gilmore Department: [facility] Room: Gender: Female E M Assembler: FABIOLA : 1955 Requested By: Order Number: [id number] Reading MD: Mejia Wadsworth Measurements Intervals [place] Rate: 97 P: 35 SC: 180 QRS: -9 QRSD: 88 T: 31 QT: 366 QTc: 464 Interpretive Statements Normal sinus rhythm Cannot rule out Anterior infarct , age undetermined Electronically Signed On 08-30-2024 23:43:11 PST by Mejia Wadsworth
[2024-08-26 20:46] LABS: Add Manual Diff / Slide Review NO; Basophils Absolute Auto 100 /uL (0-100); Basophils Percent Auto 0.5 % (0-2); Eosinophils Absolute Auto 200 /uL (0-450); Eosinophils Percent Auto 2.1 % (2-4); Hematocrit 46.4 % (36-46); Hemoglobin 15.6 g/dL (12.0-16.0); Lymphocytes Absolute Auto 4200 /uL (1100-4500); Lymphocytes Percent Auto 37.4 % (25-40); Mean Corpuscular HGB Conc 33.6 % (30-36); Mean Corpuscular Hemoglobin 31.5 PG (26-34); Mean Corpuscular Volume 93.8 fL (80-100); Monocytes Absolute Auto 1100 /uL (0-900); Monocytes Percent Auto 10.2 % (3-14); Neutrophils Absolute Auto 5500 /uL (1500-7000); Neutrophils Percent Auto 49.8 % (50-75); Platelet Count 349 X10^3/uL (150-400); Red Blood Cell Count 4.95 X10^6/uL (4.0-5.2); Red Cell Distribution Width 13.7 % (11.6-14.8); White Blood Cell Count 11.1 X10^3/uL (4.5-11.0)
[2024-08-26 20:59] LABS: Alanine Aminotransferase 36 IU/L (<35); Albumin 4.6 g/dL (3.5-5.0); Albumin Globulin Ratio 1.4 (1.0-2.8); Alkaline Phosphatase 68 U/L (38-126); Aspartate Aminotransferase 67 IU/L (14-36); BUN Creatinine Ratio 27.4 (6-22); Bilirubin Total 0.5 mg/dL (0.2-1.3); Blood Urea Nitrogen 23 mg/dL (7-17); Calcium 9.2 mg/dL (8.4-10.2); Carbon Dioxide 28 mmol/L (22-32); Chloride 98 mmol/L (98-107); Estimated Glomerular Filt Rate > 60 mL/min (>60); Globulin 3.2 g/dL (1.7-4.1); Glucose 121 mg/dL (80-110); HEMOLYSIS 42 (0-50); Lipase 202 U/L (23-300); Potassium 3.1 mmol/L (3.4-5.1); Sodium 135 mmol/L (137-145); Total Protein 7.8 g/dL (6.3-8.2)
--- NOTE | 2024-08-26 21:02 | ED.ABDPAIN ---
HPI - Abdominal Pain General Chief Complaint: Abdominal Pain Stated Complaint: abd px, blood in urine Time Seen by Provider: 08/26/24 20:24 Source: patient Mode of arrival: Ambulatory History of Present Illness HPI narrative: 69-year-old female with history of hypertension presents by private vehicle from home for lower abdominal cramping and blood noticed on the toilet tissue when wiping. Patient states that she can not tell if the blood is coming from her vagina or from her urine. The abdominal cramping has been present for several weeks. She has seen her primary care doctor for this issue. She has an abdominal ultrasound ordered in 2 days, but because of the blood she noticed today she came to the ER. Denies history of abnormal Pap smears. Still has her ovaries and uterus. Related Data Home Medications Medication Instructions Recorded Confirmed hfwxenwfzri-F-Kyufhhiuvacfpoodfd tab PO 05/29/24 08/02/24 500 mg-200 mg tablet calcium carbonate 500 mg PO DAILY 06/09/24 08/02/24 cholecalciferol (vitamin D3) 10 20 mcg PO DAILY 06/09/24 08/02/24 mcg (400 unit) capsule Previous Rx's Medication Instructions Recorded ferrous sulfate 142 mg (45 mg 142 mg PO DAILY #36 tabs 01/31/23 iron) tablet,extended release (Slow Fe) famotidine 40 mg tablet (Pepcid) 40 mg PO DAILY #90 tabs 12/14/23 losartan 25 mg tablet 12.5 mg (1/2 x 25 mg) PO DAILY #45 06/09/24 tabs niacin 500 mg capsule,extended 500 mg PO BEDTIME #90 caps 06/09/24 release triamterene 75 1 tab PO DAILY #90 tabs 06/09/24 mg-hydrochlorothiazide 50 mg tablet semaglutide (weight loss) 1.7 1.7 mg (0.75 mL) SUBCUT QWEEK #3 mL 07/10/24 mg/0.75 mL subcutaneous pen injector nitrofurantoin macrocrystal 100 mg 100 mg PO Q12H #10 caps 08/26/24 capsule Allergies Allergy/AdvReac Type Severity Reaction Status Date / Time lisinopril AdvReac Intermediate Cough Verified 08/02/24 09:51 Patient History Medical History Elevated LFTs Class 2 obesity due to excess calories in adult CKD (chronic kidney disease) stage 3, GFR 30-59 ml/min Statin declined Hyperlipidemia Acne Hay fever Hip problem Fibula fracture Mumps Measles Chicken pox Painful menstrual periods Frequent UTI GERD (gastroesophageal reflux disease) Colon polyps Right hip pain Surgical History Anesthesia History of tonsillectomy and adenoidectomy Status post arthroscopy of hip (~2011) Family History Father History of heart disease Kidney failure Mother History of heart disease Kidney failure Social History household members: spouse Smoking Status: Never smoker Smoking Status: Never smoker alcohol intake frequency: 0-2 drinks per day Exam Initial Vital Signs Initial Vital Signs: Vital Signs Temperature 98.5 F 08/26/24 20:04 Pulse Rate 123 H 08/26/24 20:04 Respiratory Rate 18 08/26/24 20:04 Blood Pressure 173/87 H 08/26/24 20:04 Pulse Oximetry 98 08/26/24 20:04 Oxygen Delivery Method Room Air 08/26/24 20:04 Const: Awake, alert, no acute distress, nontoxic appearing Cardiac: regular rate, regular rhythm RESP: unlabored, clear bilaterally, no wheezing GI: Soft, minimal bilateral lower quadrant suprapubic tenderness to deep palpation Back: No CVA tenderness bilaterally : Pharmacist Manager present external genitalia normal, cervix grossly normal, trace blood in vaginal vault Skin: Warm, Dry, intact, no rashes Neuro: AO x3, CN II-XII grossly intact, moves all extremities Course Orders Ordered: ED Orders 08/26/24 20:10 Urine Culture Stat Urine Microscopic Stat 08/26/24 20:24 EKG-12 Lead Stat 08/26/24 20:30 Complete Blood Count AUTO DIFF Stat Comprehensive Metabolic Panel Stat Lipase Stat 08/26/24 22:36 US transvaginal Stat Discontinued Medications Ondansetron HCl (Ondansetron 4 Mg/2 Ml Inj) 4 mg IV NOW PRN PRN Reason: Nausea And Vomiting Ondansetron HCl (Ondansetron 4 Mg Odt) 4 mg PO NOW PRN PRN Reason: Nausea And Vomiting Vital Signs Vital signs: Vital Signs - 8 hr 08/26/24 20:04 08/26/24 20:25 08/26/24 20:25 Temperature 98.5 F Pulse Rate 123 H 112 H Respiratory Rate 18 19 Blood Pressure 173/87 H 182/92 H Pulse Oximetry 98 98 Oxygen Delivery Method Room Air 08/26/24 20:30 08/26/24 20:30 08/26/24 21:00 Temperature Pulse Rate 104 H Respiratory Rate 15 Blood Pressure 171/86 H 163/72 H Pulse Oximetry 98 Oxygen Delivery Method 08/26/24 21:00 08/26/24 21:30 08/26/24 21:31 Temperature Pulse Rate 94 H 86 87 Respiratory Rate 12 18 12 Blood Pressure Pulse Oximetry 95 97 97 Oxygen Delivery Method 08/26/24 21:31 08/26/24 22:00 08/26/24 22:01 Temperature Pulse Rate 95 H 92 H Respiratory Rate 16 12 Blood Pressure 166/75 H Pulse Oximetry 97 97 Oxygen Delivery Method 08/26/24 22:01 08/26/24 22:30 08/26/24 23:00 Temperature Pulse Rate 118 H 90 Respiratory Rate 20 19 Blood Pressure 158/73 H Pulse Oximetry 94 Oxygen Delivery Method 08/26/24 23:00 08/26/24 23:30 08/26/24 23:30 Temperature Pulse Rate 94 H Respiratory Rate 22 Blood Pressure 168/79 H 159/89 H Pulse Oximetry 95 Oxygen Delivery Method MDM - Abdominal Pain Lab Data 08/26/24 20:30 08/26/24 20:30 Labs: Lab Results 08/26/24 08/26/24 Range/Units 20:10 20:30 WBC 11.1 H (4.5-11.0) X10^3/uL RBC 4.95 (4.0-5.2) X10^6/uL Hgb 15.6 (12.0-16.0) g/dL Hct 46.4 H (36-46) % MCV 93.8 (80-100) fL MCH 31.5 (26-34) PG MCHC 33.6 (30-36) % RDW 13.7 (11.6-14.8) % Plt Count 349 (150-400) X10^3/uL Neut % (Auto) 49.8 L (50-75) % Lymph % (Auto) 37.4 (25-40) % Gibson % (Auto) 10.2 (3-14) % Eos % (Auto) 2.1 (2-4) % Baso % (Auto) 0.5 (0-2) % Neut # (Auto) 5500 (6956-8671) /uL Lymph # (Auto) 4200 (5180-6459) /uL Gibson # (Auto) 1100 H (0-900) /uL Eos # (Auto) 200 (0-450) /uL Baso # (Auto) 100 (0-100) /uL Sodium 135 L (137-145) mmol/L Potassium 3.1 L (3.4-5.1) mmol/L Chloride 98 (98-107) mmol/L Carbon Dioxide 28 (22-32) mmol/L BUN 23 H (7-17) mg/dL Creatinine 0.84 (0.52-1.04) mg/dL Estimated GFR > 60 (>60) mL/min BUN/Creatinine Ratio 27.4 H (6-22) Glucose 121 H (80-110) mg/dL Calcium 9.2 (8.4-10.2) mg/dL Total Bilirubin 0.5 (0.2-1.3) mg/dL AST 67 H (14-36) IU/L ALT 36 H (<35) IU/L Alkaline Phosphatase 68 (38-126) U/L Total Protein 7.8 (6.3-8.2) g/dL Albumin 4.6 (3.5-5.0) g/dL Globulin 3.2 (1.7-4.1) g/dL Albumin/Globulin Ratio 1.4 (1.0-2.8) Lipase 202 (23-300) U/L Urine RBC 5-10/hpf H (0-5/HPF) Urine WBC 5-10/hpf H (0-5/HPF) Ur Squamous Epith Cells 0-1 /hpf (0-5/HPF) Urine Bacteria Moderate (10-30) H (None) Ur Culture Indicated? Specimen cultured Vol Urine Centrifuged 10ml (spun) Point of care testing: Urine Dip Bedside Urine Glucose Negative Bedside Urine Bilirubin - Negative Bedside Urine Ketone - Negative Urine Specific [place] 1.015 Bedside Urine Occult Blood +++ Bedside Urine pH 6.5 Bedside Urine Protein - Negative Bedside Urine Urobilinogen - Negative Bedside Urine Nitrite - Negative Bedside Urine Leukocytes + 70 Esterase Imaging Data US - HIDE SPREADER: Radiologist's Impression: PROCEDURE: US TRANSVAGINAL INDICATIONS: postmenopausal bleeding TECHNIQUE: Real-time scanning was performed of the pelvic organs, with image documentation. Additional endovaginal scanning was necessary due to incomplete visualization of the adnexal and endometrial structures by transabdominal scanning. COMPARISON: None. FINDINGS: Uterus: Uterus is anteverted and normal in size at 6.6 x 2.9 x 5.7 cm. The myometrium is mildly heterogeneous, with a the done [place] fibroid seen on the right anteriorly measuring up to 2.4 cm. The images stripe is thickened and irregular, measuring at least 1 cm in thickness, with additional masslike thickening measuring up to 2.4 cm in thickness. Mild increased vascularity can be seen along the endometrial stripe. Ovaries: The right ovary measures 2.5 x 1.2 x 2.1 cm. The left ovary measures 2 x 1 x 2.1 cm. Less than 12 follicles can be seen involving each ovary. Normal appearing arterial waveforms are confirmed to each ovary. Other: No pathologic free abdominal or pelvic fluid. IMPRESSION: Irregular masslike thickening seen of the endometrial stripe, with strong suspicion for endometrial neoplasm, particularly in this patient with a presenting history of postmenopausal bleeding. Note: Concordant preliminary findings given by the yard goods salesperson upon the completion of the examination to ER physician at 11:13 p.m. on August 26, 2024. We strive to produce accurate, complete, and clear reports of imaging services. To assist us in improving patient care, this report was composed using standard report templates and voice recognition software. Therefore, it may contain abnormal punctuation, insertions and/or omissions. Occasional wrong-word or sound-alike substitutions may occur. Though we review the report and make efforts to correct it, we do recommend that the report be read carefully in proper context to recognize any text inaccuracies. Dictated by: Zhang Davenport M.D. on 08/26/2024 at 22:19 Approved by: Zhang Davenport M.D. on 08/26/2024 at 22:23 MDM Narrative Medical decision making narrative: Well-appearing patient with 3 weeks of suprapubic cramping, now with blood on toilet tissue when she wipes. Patient admitted she was uncertain if the blood is coming from her urine or her vagina. Pelvic exam shows otherwise normal-appearing cervix but trace amounts of red blood in the vaginal vault. Patient has long past menopause. With this finding a vaginal ultrasound was ordered for further assessment. Laboratory work reviewed, hemoglobin 15.6, other labs relatively unremarkable. Bacteria and leukocyte esterase seen on urinalysis. Ultrasound shows findings that are highly concerning for endometrial cancer. Patient and at bedside informed of all lab and imaging findings. I advised the patient of her abnormal ultrasound results and strongly counseled urgent follow up with OBGYN for further management. Patient was advised to follow up with her primary care doctor for this finding as well. She was told to keep her appointment on Wednesday for her upper abdominal ultrasound as planned. OBGYN referral number provided. Discharge Plan Departure Patient Disposition: Home Clinical Impression: Abdominal cramping, bilateral lower quadrant, Abnormal transvaginal ultrasound Instructions: DI for Abdominal Muscle Strain Activity Restrictions/Additional Instructions: Your laboratory work today was normal. Your urinalysis did show bacteria and some markers of infection. For this an antibiotic has been sent to your pharmacy. On your pelvic exam today your cervix overall appeared normal, however I did see a small amount of blood in your vagina. For this reason I ordered an ultrasound, that shows ?irregular masslike thickening seen of the endometrial stripe, with strong suspicion for endometrial neoplasm?. Definitive diagnosis can not be made without biopsy, and for this reason I strongly recommend that you follow up with OBGYN as soon as possible. An OBGYN referral number has been provided. If you notice any worsening symptoms please come back to the ER for repeat evaluation. Prescriptions: New nitrofurantoin macrocrystal 100 mg capsule 100 mg PO Q12H Qty: 10 0RF Rx Instructions: must administer with a meal/food No Action Slow Fe 142 mg (45 mg iron) tablet extended release 142 mg PO DAILY Qty: 36 1RF Rx Instructions: Take 1 tabs, 3x per week for anemia. famotidine [Pepcid] 40 mg tablet 40 mg PO DAILY Qty: 90 2RF Rx Instructions: Take 1 tab per day for presumed GIB. losartan 25 mg tablet 12.5 mg PO DAILY Qty: 45 0RF niacin 500 mg capsule, extended release 500 mg PO BEDTIME Qty: 90 0RF triamterene-hydrochlorothiazid 75-50 mg tablet 1 tab PO DAILY Qty: 90 0RF calcium carbonate 500 mg calcium (1,250 mg) tablet 500 mg PO DAILY cholecalciferol (vitamin D3) 10 mcg (400 unit) capsule 20 mcg PO DAILY kffnyqqjbir-K-Aashcyaoflrsedy 500-200 mg tablet PO semaglutide (weight loss) 1.7 mg/0.75 mL pen injector 1.7 mg SUBCUT QWEEK Qty: 3 1RF Rx Instructions: administer weeks 13 through 16 of therapy Referrals: Quita Christian MD [Physician] - Akilah Rodriguez DO [Primary Care Provider] - Stand Alone Forms: Patient Portal/API/Survey
[2024-08-26 21:04] LABS: RBC Urine 5-10/HPF (0-5/HPF); Urine Volume 10mL (spun); WBC Urine 5-10/HPF (0-5/HPF)
[2024-08-26 21:05] LABS: Bacteria Urine Moderate (10-30); Culture Indicated Urine Specimen Cultured; Squamous Epithelial Cell Urine 0-1 /HPF (0-5/HPF)
--- NOTE | 2024-08-26 22:36 | DI.US.S_ITS ---
PROCEDURE: US TRANSVAGINAL INDICATIONS: postmenopausal bleeding TECHNIQUE: Real-time scanning was performed of the pelvic organs, with image documentation. Additional endovaginal scanning was necessary due to incomplete visualization of the adnexal and endometrial structures by transabdominal scanning. COMPARISON: None. FINDINGS: Uterus: Uterus is anteverted and normal in size at 6.6 x 2.9 x 5.7 cm. The myometrium is mildly heterogeneous, with a the done [place] fibroid seen on the right anteriorly measuring up to 2.4 cm. The images stripe is thickened and irregular, measuring at least 1 cm in thickness, with additional masslike thickening measuring up to 2.4 cm in thickness. Mild increased vascularity can be seen along the endometrial stripe. Ovaries: The right ovary measures 2.5 x 1.2 x 2.1 cm. The left ovary measures 2 x 1 x 2.1 cm. Less than 12 follicles can be seen involving each ovary. Normal appearing arterial waveforms are confirmed to each ovary. Other: No pathologic free abdominal or pelvic fluid. IMPRESSION: Irregular masslike thickening seen of the endometrial stripe, with strong suspicion for endometrial neoplasm, particularly in this patient with a presenting history of postmenopausal bleeding. Note: Concordant preliminary findings given by the billing typist upon the completion of the examination to ER physician at 11:13 p.m. on August 26, 2024. We strive to produce accurate, complete, and clear reports of imaging services. To assist us in improving patient care, this report was composed using standard report templates and voice recognition software. Therefore, it may contain abnormal punctuation, insertions and/or omissions. Occasional wrong-word or sound-alike substitutions may occur. Though we review the report and make efforts to correct it, we do recommend that the report be read carefully in proper context to recognize any text inaccuracies. Dictated by: Zhang Davenport M.D. on 08/26/2024 at 22:19 Approved by: Zhang Davenport M.D. on 08/26/2024 at 22:23
== END 2024-08-26 23:55 | disposition home or self-care (01) ==
PROVIDERS: Emergency Provider Emergency Medicine; PCP Family Medicine
DX: R10.32 Left lower quadrant pain (principal); R10.31 Right lower quadrant pain; R93.89 Abnormal findings on diagnostic imaging of other specified body structures; N95.0 Postmenopausal bleeding; I10 Essential (primary) hypertension; E78.5 Hyperlipidemia, unspecified; N18.30 Chronic kidney disease, stage 3 unspecified
CPT/HCPCS: 36415; 76830; 80053; 81003; 81015; 83690; 85025; 87086; 93005; 99283; 99284

== ENCOUNTER → 2024-08-28 11:50 | Outpatient (CLI) | payer MEDICARE, OTHER, SELFPAY ==
--- NOTE | 2024-08-28 11:51 | DI.US.S_ITS ---
PROCEDURE: US ABDOMEN COMPLETE INDICATIONS: 1 mo episodic abdominal cramping TECHNIQUE: Real-time scanning was performed of the abdominal and retroperitoneal organs, with image documentation. COMPARISON: None. FINDINGS: Liver: Liver is normal in size and homogeneous in echotexture. Gallbladder: The gallbladder is normal without stones, sludge, wall thickening, or pericholecystic fluid. Biliary ducts: Intrahepatic bile ducts are non-dilated. Extrahepatic bile duct caliber measures 4.2 mm. Normal is 6-7 mm or less in diameter, or 10 mm or less post-cholecystectomy. Pancreas: The proximal pancreas appears normal. The body and tail are obscured by bowel gas. Spleen: Spleen is normal in size and homogeneous in echotexture. Kidneys: Kidneys are normal in size and echotexture. Right kidney measures 10.9 cm long; left kidney measures 9.9 cm long. No hydronephrosis or nephrolithiasis. No solid masses. Aorta: Visualized aorta is normal in caliber at less than 3 cm. Iliacs: Not seen due to bowel gas. IVC: Intrahepatic inferior vena cava is patent. Miscellaneous: No free abdominal fluid. IMPRESSION: The visible portions of the organs are normal. Distal pancreas and iliac arteries were not well seen due to bowel gas. Dictated by: Zena Ortiz M.D. on 08/28/2024 at 20:37 Approved by: Zena Ortiz M.D. on 08/28/2024 at 20:40
== END ==
LOC: US 11:51
PROVIDERS: PCP Family Medicine; Referring Provider Family Medicine; Visit Provider Family Medicine
DX: R10.9 Unspecified abdominal pain (principal)
CPT/HCPCS: 76700

== ENCOUNTER 2024-09-08 08:13 | Day surgery (SDC) | payer MEDICARE, OTHER, SELFPAY ==
[2024-09-05 08:37] VITALS: BMI 28.4
[2024-09-08] VITALS (7 sets, daily range): BP systolic 117–154; BP diastolic 71–84; PULSE 66–80; RESP 16; TEMP 36.2–36.6; O2SAT 98–100; BMI 28.5
--- NOTE | 2024-09-08 | PATH_ITS ---
[facility] Accession Number: [id number] No. of containers..01 Tissue . 01 Material submitted: . endometrium - ENDOMETRIAL CONTENTS . 01 Diagnosis: ENDOMETRIUM, CURETTAGE: Endometrioid adenocarcinoma, FIGO grade 1. MRV 09/13/2024 1440 Local . 01 Comment: As part of routine supervisor type disk quality control, Dr. Campa has reviewed this case and agrees with the diagnosis above. The finding of endometrioid adenocarcinoma was reported to Dr. Christian via RN Michelle by Dr. Marrero on 09/13/2024 at 1:14 p.m. . . 01 Electronically signed: . Sanchez Marrero MD, PhD, Pathologist NPI- [id number] . 01 Gross description: . Received in formalin, labeled with two patient identifiers and endometrial contents, are multiple win soft tissue fragments admixed with mucohemorrhagic material aggregating to 3.4 x 2.7 x 0.7 cm. Filtered and submitted in cassettes A1-A2. ([id number]) /[facility] 09/09/2024 1110 Local . 01 Microscopic: . Sections are of endometrial mucosa with increased glandular to stromal volume ratios and variable architecture with cystically dilated and proliferative glandular profiles, as well as areas with a more papillary architecture with areas of lost nuclear polarity. No striking nuclear atypia is seen. To further evaluate the lesion, a panel of immunohistochemical stains is performed (each with an appropriately positive control). The malignant cells show wild-type variable p53 immunoreactivity, variable p16 reactivity, strong and diffuse estrogen receptor and progesterone receptor immunoreactivity, as well as basolateral vimentin immunoreactivity. A Ki67 immunohistochemical stain shows a proliferative rate of approximately 30%. The overall histologic features are consistent with endometrioid adenocarcinoma, and do not favor serous carcinoma. Additionally, a napsin A immunohistochemical stain is negative, arguing against a clear cell carcinoma oomponent. . * This test was developed and the performance characteristics were validated by [facility]. It has not been cleared or approved by the U.S. Food and Drug Administration. . 01 Pathologist provided ICD-10: N95.0, C54.1 . 01 CPT . 882124, K53754, L63822 Specimen Comment: A courtesy copy of this report has been sent to [facility] Performed at: [address] [address], [place], [place] [id number] MD Pancho Stewart MD Phone: [phone]
[2024-09-08] MEDS: LACTATED RINGERS 1,000 ML 42 ML IV (09:04)
--- NOTE | 2024-09-08 09:26 | PM.PREOP ---
Pre-operative Note Interval Note History & Physical reviewed/Exam performed by Physician: Yes Changes to H&P: No H&P completed within 30 days and has changed as indicated here:: 08/29/24 ASA Class (for procedural sedation): II
--- NOTE | 2024-09-08 10:06 | SUR.OPER ---
100 DEFICIT, 758 TOTAL FLUID, 80 FINAL PRESSURE, 00:51 SEC CUTTING TIME
--- NOTE | 2024-09-08 10:10 | PM.OP.1 ---
Operative Date/Time/Diagnoses Date of procedure: 09/08/24 Time of procedure: 10:10 Pre-op diagnosis: PMB, abnormal pelvic US Post-op diagnosis: same Procedure & Clinicians Procedure: hysteroscopy, myosure polypectomy, dilation and curettage Same procedure as scheduled: Yes Indications: postmenopausal bleeding, abnormal pelvic US Surgeon: Quita Christian Click Yes if Unassisted: Yes Anesthesia Type: General Operative Notes Findings: normal external female genitalia stenotic, atrophic cervix endometrium with vesicular appearing mass vs polyp, calcified bilateral ostia visualized Specimen(s): other (endometrial contents) Estimated Blood Loss (mL): 5 Blood products transfused: none Procedure in detail: Pt was taken to the operating room, transferred to OR table and anesthesia was induced with placement of LMA.? Pt had her legs placed in Davide stirrups and an exam under anesthesia was performed. The patient was prepped and draped in a sterile fashion.? A time out was performed. ?The bladder was emptied via straight catheter in sterile fashion.? A sterile speculum was inserted into the vagina.? The cervix was visualized and grasped anteriorly using a single tooth tenaculum.? The uterus sounded to 6cm and the cervical os was serially dilated using [place] dilators up to 17f to allow for passage of the hysteroscope.? The 5mm 0 degree hysteroscope was then inserted into the uterus with findings as noted.? The small Myosure device was introduced and the endometrium including visualized pathology was fractionally resected under direct visualization. The hysteroscope was removed and the uterus was sharply curetted until a gritty texture was noted throughout.? The tenaculum was removed and hemostasis was noted at insertion sites.? The speculum was removed and hemostasis was again noted to be excellent.? The patient then had her legs taken out of stirrups.? The patient tolerated the procedure well and without difficulty.? The patient was awakened from anesthesia and taken to PACU in stable condition. ? Complications: none Post-operative Condition: stable Disposition: PACU Plan for aftercare: anticipate dc to home pending routine postoperative recovery
[2024-09-08] MEDS: KETOROLAC 30 MG/ML VIAL 15 MG IV (10:38)
[2024-09-08] MEDS: ONDANSETRON 4 MG/2 ML INJ IV (10:40)
[2024-09-08] MEDS: OXYCODONE IR 5 MG TABLET PO (10:40)
== END 2024-09-08 11:19 | disposition home or self-care (01) ==
PROVIDERS: PCP Family Medicine; Referring Provider Obstetrics & Gynecology; Visit Provider Obstetrics & Gynecology
PROC: 0UDB8ZZ Extraction of Endometrium, Via Natural or Artificial Opening Endoscopic (ICD-10-PCS; CPT 58558; principal; 2024-09-08 10:00)
DX: C54.1 Malignant neoplasm of endometrium (principal)
CPT/HCPCS: 58558; J1885; J2250; J2405; J2704; J3010

== ENCOUNTER → 2024-10-30 09:06 | Outpatient (CLI) | payer MEDICARE, OTHER, SELFPAY ==
[2024-10-30 10:37] LABS: Add Manual Diff / Slide Review NO; Basophils Absolute Auto 0 /uL (0-100); Basophils Percent Auto 0.6 % (0-2); Eosinophils Absolute Auto 400 /uL (0-450); Eosinophils Percent Auto 6.9 % (2-4); Hematocrit 41.2 % (36-46); Hemoglobin 13.7 g/dL (12.0-16.0); Lymphocytes Absolute Auto 2100 /uL (1100-4500); Lymphocytes Percent Auto 39.4 % (25-40); Mean Corpuscular HGB Conc 33.3 % (30-36); Mean Corpuscular Hemoglobin 31.1 PG (26-34); Mean Corpuscular Volume 93.6 fL (80-100); Monocytes Absolute Auto 800 /uL (0-900); Monocytes Percent Auto 14.5 % (3-14); Neutrophils Absolute Auto 2000 /uL (1500-7000); Neutrophils Percent Auto 38.6 % (50-75); Platelet Count 314 X10^3/uL (150-400); Red Cell Distribution Width 13.4 % (11.6-14.8); White Blood Cell Count 5.2 X10^3/uL (4.5-11.0)
== END ==
PROVIDERS: PCP Family Medicine; Referring Provider Specialist; Visit Provider Specialist
DX: C54.1 Malignant neoplasm of endometrium (principal)
CPT/HCPCS: 36415; 85025

== ENCOUNTER → 2024-11-23 09:15 | Outpatient (CLI) | payer MEDICARE, OTHER, SELFPAY ==
[2024-11-23 09:57] LABS: Add Manual Diff / Slide Review NO; Basophils Absolute Auto 0 /uL (0-100); Basophils Percent Auto 0.6 % (0-2); Eosinophils Absolute Auto 200 /uL (0-450); Eosinophils Percent Auto 5.5 % (2-4); Hematocrit 38.7 % (36-46); Hemoglobin 13.1 g/dL (12.0-16.0); Lymphocytes Absolute Auto 2000 /uL (1100-4500); Lymphocytes Percent Auto 49.1 % (25-40); Mean Corpuscular HGB Conc 33.9 % (30-36); Mean Corpuscular Hemoglobin 31.6 PG (26-34); Mean Corpuscular Volume 93.3 fL (80-100); Monocytes Absolute Auto 600 /uL (0-900); Monocytes Percent Auto 15.2 % (3-14); Neutrophils Absolute Auto 1200 /uL (1500-7000); Neutrophils Percent Auto 29.6 % (50-75); Platelet Count 195 X10^3/uL (150-400); Red Blood Cell Count 4.15 X10^6/uL (4.0-5.2); Red Cell Distribution Width 13.2 % (11.6-14.8); White Blood Cell Count 4.1 X10^3/uL (4.5-11.0)
== END ==
PROVIDERS: PCP Family Medicine; Referring Provider Physician Assistant Medical; Visit Provider Physician Assistant Medical
DX: Z01.818 Encounter for other preprocedural examination (principal); Z51.11 Encounter for antineoplastic chemotherapy; C54.1 Malignant neoplasm of endometrium
CPT/HCPCS: 36415; 85025

== ENCOUNTER → 2024-12-14 08:14 | Outpatient (CLI) | payer MEDICARE, OTHER, SELFPAY ==
--- NOTE | 2024-12-14 08:15 | DI.MG.S_ITS ---
MM screening mammo BI: 12/14/2024. BI-RADS: 1 CLINICAL: 69-year old female for bilateral screening mammogram. Tyrer-Cuzick lifetime risk of 6.8%. No personal or first-degree family history of breast cancer. PRIOR EXAMS 09/07/2023, 06/17/2021, 06/08/2019. MAMMOGRAPHY TECHNIQUE: 2D and 3D (tomosynthesis) digital mammographic views obtained, with additional images as needed for full coverage. Current study was also evaluated with a Computer Aided Detection (CAD) system. DENSITY C. The breasts are heterogeneously dense, which may obscure small masses. MAMMOGRAPHY FINDINGS Bilateral: No suspicious mass, asymmetry, microcalcification, or other abnormality seen. IMPRESSION: * No evidence of malignancy. RECOMMENDATIONS Bilateral * Annual screening mammography. OVERALL ASSESSMENT CATEGORY BI-RADS-1: Negative. The [employer] recommends annual screening mammography beginning at age 40 for women with average risk of breast cancer. ELECTRONICALLY SIGNED: Teetee Elizondo M.D. on 12/15/2024 at 12:42:15 PM PT Interpreting Station ID: [id number]
== END ==
PROVIDERS: PCP Family Medicine; Referring Provider Family Medicine; Visit Provider Family Medicine
DX: Z12.31 Encounter for screening mammogram for malignant neoplasm of breast (principal); R92.333 Mammographic heterogeneous density, bilateral breasts
CPT/HCPCS: 77063; 77067

== ENCOUNTER → 2024-12-15 08:03 | Outpatient (CLI) | payer MEDICARE, OTHER, SELFPAY ==
[2024-12-15 08:22] LABS: Add Manual Diff / Slide Review NO; Basophils Absolute Auto 0 /uL (0-100); Basophils Percent Auto 0.5 % (0-2); Eosinophils Absolute Auto 100 /uL (0-450); Hematocrit 40.2 % (36-46); Hemoglobin 13.6 g/dL (12.0-16.0); Lymphocytes Absolute Auto 1600 /uL (1100-4500); Lymphocytes Percent Auto 44.1 % (25-40); Mean Corpuscular HGB Conc 33.8 % (30-36); Mean Corpuscular Hemoglobin 31.8 PG (26-34); Monocytes Absolute Auto 400 /uL (0-900); Monocytes Percent Auto 11.1 % (3-14); Neutrophils Absolute Auto 1500 /uL (1500-7000); Neutrophils Percent Auto 40.3 % (50-75); Platelet Count 202 X10^3/uL (150-400); Red Blood Cell Count 4.28 X10^6/uL (4.0-5.2); Red Cell Distribution Width 13.8 % (11.6-14.8); White Blood Cell Count 3.6 X10^3/uL (4.5-11.0)
== END ==
PROVIDERS: PCP Family Medicine; Referring Provider Specialist; Visit Provider Specialist
DX: C54.1 Malignant neoplasm of endometrium (principal)
CPT/HCPCS: 36415; 85025

== ENCOUNTER → 2025-01-05 08:11 | Outpatient (CLI) | payer MEDICARE, OTHER, SELFPAY ==
[2025-01-05 08:42] LABS: Add Manual Diff / Slide Review NO; Basophils Absolute Auto 0 /uL (0-100); Basophils Percent Auto 0.3 % (0-2); Eosinophils Absolute Auto 100 /uL (0-450); Eosinophils Percent Auto 3.1 % (2-4); Hematocrit 39.9 % (36-46); Hemoglobin 13.5 g/dL (12.0-16.0); Lymphocytes Absolute Auto 1500 /uL (1100-4500); Lymphocytes Percent Auto 51.6 % (25-40); Mean Corpuscular HGB Conc 33.7 % (30-36); Mean Corpuscular Hemoglobin 31.7 PG (26-34); Mean Corpuscular Volume 94.1 fL (80-100); Monocytes Absolute Auto 300 /uL (0-900); Monocytes Percent Auto 11.6 % (3-14); Neutrophils Absolute Auto 1000 /uL (1500-7000); Neutrophils Percent Auto 33.4 % (50-75); Platelet Count 145 X10^3/uL (150-400); Red Blood Cell Count 4.24 X10^6/uL (4.0-5.2); Red Cell Distribution Width 15.7 % (11.6-14.8); White Blood Cell Count 2.9 X10^3/uL (4.5-11.0)
== END ==
PROVIDERS: PCP Family Medicine
DX: Z51.11 Encounter for antineoplastic chemotherapy (principal); Z51.12 Encounter for antineoplastic immunotherapy; C54.1 Malignant neoplasm of endometrium
CPT/HCPCS: 36415; 85025

== ENCOUNTER → 2025-02-15 07:16 | Outpatient (CLI) | payer MEDICARE, OTHER, SELFPAY ==
[2025-02-15 10:27] LABS: Cholesterol 226 mg/dL (140-199); HDL Cholesterol 53 mg/dL (40-60); Triglycerides 203 mg/dL (35-150)
== END ==
PROVIDERS: PCP Family Medicine; Referring Provider Family Medicine; Visit Provider Family Medicine
DX: E78.5 Hyperlipidemia, unspecified (principal)
CPT/HCPCS: 36415; 80061

== ENCOUNTER → 2025-06-12 08:17 | Outpatient (CLI) | payer MEDICARE, OTHER, SELFPAY ==
[2025-06-12 08:47] LABS: HEMOLYSIS < 15 (0-50); Potassium 3.8 mmol/L (3.4-5.1)
== END ==
PROVIDERS: PCP Family Medicine; Referring Provider Family Medicine; Visit Provider Family Medicine
DX: N18.31 Chronic kidney disease, stage 3a (principal); E87.6 Hypokalemia
CPT/HCPCS: 36415; 84132